=== PATIENT | male | born 1980 | race American Indian/Alaskan Native ===

== ENCOUNTER 2016-10-09 06:50 | Day surgery (SDC) | payer MEDICARE, MEDICAID ==
[~2016-10-09 06:50] MED LIST: Midazolam 1 MG/ML 2 ML SDV ONE; Propofol 200 MG/20 ML SDV ONE; fentaNYL 100 MCG/2 ML SDV ONE
[2016-10-09] MEDS ORDERED: Dextrose 5%-Lactated Ringers 1,000 ML IV SCH (08:00)
[2016-10-09] MEDS ORDERED: Glycopyrrolate 0.2 MG/ML 2 ML SYRINGE IVPUSH ONE (08:15)
[2016-10-09 09:42] VITALS: BP 119/83
--- NOTE | 2016-10-17 12:58 | OR ---
DATE OF PROCEDURE: 10/09/2016 PREOPERATIVE DIAGNOSIS: History of hematemesis. POSTOPERATIVE DIAGNOSES: 1. History of hematemesis associated with a mild hiatal hernia with active gastroesophageal reflux disease with areas of inflammation and possible Russ's esophagus extending into proximal esophagus. 2. Large gastric bezoar consistent with gastroparesis. 3. Diffuse gastritis. PROCEDURE: 1. Esophagogastroduodenoscopy with:. a. Biopsies of antrum for CLOtest. b. Biopsies of esophagogastric junction for histologic evaluation. c. Biopsies of possible areas of Russ's esophagus and proximal esophagus for histologic evaluation. ANESTHESIA: IV sedation. INDICATIONS FOR PROCEDURE: This is a 36-year-old male presenting with a history of hematemesis. In the past, his upper endoscopy was normal. Presently, he is on Protonix 40 mg daily and Zantac 150 mg b.i.d. Plan is to proceed with upper GI endoscopy with biopsies as indicated. Potential risks including bleeding and perforation were discussed, and the patient wishes to proceed. DETAILS OF PROCEDURE: The patient was taken to the operating room and placed in a left lateral decubitus position. IV sedation was administered, after which the upper GI endoscope was passed orally through the esophagus and the stomach with retroflexion view of the fundus, and thereafter through the pyloric channel and into the proximal duodenum. The patient was noted to have a normal hypopharynx, larynx, and upper esophageal sphincter. Within the upper esophagus, there were some patchy areas of what appeared to be more gastric type mucosa and/or possible Russ's esophagus. These areas as well were quite friable. As one approached the EG junction, the patient had a moderate-sized hiatal hernia with quite active gastroesophageal reflux disease with there being marked areas of redness and linear ulcerations present. There is no stricturing or gross evidence of neoplasia. Within the stomach, there was a large gastric bezoar consisting of old retained food associated with some more or less diffuse gastritis. The pyloric channel and proximal duodenum were unremarkable other than for the presence of some retained food likely recently passed from the stomach. The small biopsy obtained from the antrum sent for CLOtest for H pylori. Following this, biopsies were obtained from the esophagogastric junction, sent for histologic evaluation as were the biopsies of the proximal esophagus and the area of possible Russ's esophagus at that location. No bleeding from the biopsy sites was seen and the scope was then removed and the procedure concluded. The patient would appear at this point to have gastroesophageal reflux disease refractory to medical management with probably developing already present Russ's esophagus. He is presently on both Protonix and Zantac, and with the bezoar it is unlikely to get a good result with a Saji fundoplication. Given this, a proximal gastrectomy with John-en-Y gastrojejunostomy would be the best next approach. We will obtain a gastric emptying study and see him back on Saturday, 10/17, for a recheck. Myles Haney MD /[id number]
== END 2016-10-09 10:01 | disposition home or self-care (01) ==
LOC: JP.SDS 06:50
PROVIDERS: ATTEND Surgery
DX: K31.89 Other diseases of stomach and duodenum (principal); K44.9 Diaphragmatic hernia without obstruction or gangrene; Z88.0 Allergy status to penicillin; Z88.8 Allergy status to other drugs, medicaments and biological substances; I10 Essential (primary) hypertension; K21.9 Gastro-esophageal reflux disease without esophagitis; E66.9 Obesity, unspecified; F17.200 Nicotine dependence, unspecified, uncomplicated
CPT/HCPCS: 43239; 87081; 88305; J2250; J2704; J3010; J7042

== ENCOUNTER 2016-10-26 07:13 | Day surgery (SDC) | payer MEDICARE, MEDICAID ==
[2016-10-26] MEDS ORDERED: Dextrose 5%-Lactated Ringers 1,000 ML IV SCH (08:00)
[2016-10-26] MEDS ORDERED: Glycopyrrolate 0.2 MG/ML 2 ML SYRINGE IVPUSH ONE (08:30)
[2016-10-26] MEDS ORDERED: Propofol 200 MG/20 ML SDV ONE (08:34)
[2016-10-26] MEDS ORDERED: Midazolam 1 MG/ML 2 ML SDV ONE (08:34)
[2016-10-26] MEDS ORDERED: fentaNYL 100 MCG/2 ML SDV ONE (08:34)
[2016-10-26 11:11] VITALS: BP 138/85
--- NOTE | 2016-10-31 15:04 | OR ---
DATE OF PROCEDURE: 10/26/2016 PREOPERATIVE DIAGNOSIS: History of severe esophagitis and gastric bezoar. POSTOPERATIVE DIAGNOSES: 1. Healed esophagitis with cleared gastric bezoar. 2. Mild antral gastritis. OPERATIVE PROCEDURE: Esophagogastroduodenoscopy with antral biopsies for CLOtest. ANESTHESIA: IV sedation. INDICATION FOR PROCEDURE: This is a 36-year-old presenting with quite a bit in the way of epigastric pain, heartburn, and hematemesis. On recent endoscopy, he was noted to have quite active distal esophagitis along with a large gastric bezoar. The patient was continued on Protonix 40 mg daily. He also has been started on some Reglan and an anti- bezoar diet. Plan is to proceed with a followup endoscopy to assess the adequacy of the treatment. Potential risks of the procedure including bleeding and perforation were discussed, and the patient wishes to proceed. DETAILS OF PROCEDURE: The patient was taken to the operating room and placed in a left lateral decubitus position. IV sedation was administered, after which the upper GI endoscope was passed orally through the length of the esophagus, into the stomach with retroflexion view of the fundus, thereafter through the pyloric channel, and into the proximal duodenum. The findings included normal hypopharynx, larynx, upper esophageal sphincter, and esophageal body. At the EG junction, the patient was noted to have persistent hiatal hernia, but at this point the esophagitis had healed very nicely with there being no remaining erosions or ulcers and relatively minimal edema of the esophagogastric junction. Again, there was no stricturing or gross evidence of neoplasia. Within the stomach, there was a small amount of retained bile; however, the bezoar that had been present previously now had entirely gone. There was some mild redness in the antrum. Otherwise, the pyloric channel and proximal duodenum were unremarkable. At this point, biopsies were taken from the antrum, once again, to screen for H. pylori status. Minimal bleeding from the biopsy sites was seen. The procedure then concluded. At this point, the medical management is satisfactory, and we will continue that regimen. We will see him back in 2 months for recheck. He is instructed to call should he develop increasing epigastric pain or hematemesis. Myles Haney MD /[id number]
== END 2016-10-26 11:18 | disposition home or self-care (01) ==
LOC: JP.SDS 07:13
PROVIDERS: ATTEND Surgery
DX: T18.2XXA Foreign body in stomach, initial encounter (principal); K44.9 Diaphragmatic hernia without obstruction or gangrene; K21.9 Gastro-esophageal reflux disease without esophagitis; F31.9 Bipolar disorder, unspecified
CPT/HCPCS: 43239; 87081; J2250; J2704; J3010; J7042

== ENCOUNTER 2016-12-11 08:12 | Inpatient (IN) | payer MEDICARE, MEDICAID ==
[~2016-12-11 08:12] MED LIST changes: +Dexamethasone 4 MG/ML SDV ONE; +Glycopyrrolate 0.2 MG/ML 5 ML MDV ONE; -Midazolam 1 MG/ML 2 ML SDV ONE; +Neostigmine Methylsulfate 1 MG/ML 5 ML Syringe ONE; +Ondansetron 4 MG/2 ML SDV ONE; +Rocuronium 50 MG/5 ML Vial ONE; +Scopolamine 1.5 MG Transdermal Patch TRDERM SCH; +Succinylcholine 200 MG/10 ML MDV ONE; -fentaNYL 100 MCG/2 ML SDV ONE
[2016-12-11] MEDS ORDERED: Celecoxib 200 MG Cap PO ONE (08:45)
[2016-12-11] MEDS ORDERED: Gabapentin 300 MG Cap PO ONE (08:45)
[2016-12-11] MEDS ORDERED: Acetaminophen 500 MG Tab PO ONE (08:45)
[2016-12-11] MEDS ORDERED: cefOXitin 2 GM Vial ONE (09:00)
[2016-12-11] MEDS ORDERED: Dextrose 5%-Lactated Ringers 1,000 ML IV SCH (09:30)
[2016-12-11] MEDS ORDERED: Lidocaine 2% 100 MG/5 ML Syringe IVPUSH ONE (09:45)
[2016-12-11] MEDS ORDERED: Ropivacaine 52 ML, Dexamethasone 8 MG, EPINEPHrine 0.4 MG, Sodium Chloride 0.9% 25.6 ML NERVRT SCH ×4 (09:45)
[2016-12-11] MEDS ORDERED: Ketamine 500 MG/5 ML MDV IV SCH (09:45)
[2016-12-11] MEDS ORDERED: Albuterol/Ipratropium 3.0-0.5 MG/3 ML Neb Soln NEB ONE (09:49)
[2016-12-11] MEDS ORDERED: Lactated Ringers 1,000 ML ONE ×2 (09:55→12:44)
[2016-12-11] MEDS: cefOXitin 2 GM in Sodium Chloride 0.9% 50 ML IV ONE ×3 (10:58→15:37)
[2016-12-11] MEDS ORDERED: fentaNYL 250 MCG/5 ML SDV ONE (11:15)
[2016-12-11] MEDS ORDERED: Rocuronium 50 MG/5 ML Vial ONE (11:42)
[2016-12-11] MEDS ORDERED: Labetalol 20 MG/4 ML Syringe ONE (12:21)
[2016-12-11] MEDS ORDERED: Sugammadex Sodium 200 MG/2 ML VIAL ONE (13:49)
[2016-12-11] MEDS ORDERED: Labetalol 20 MG/4 ML Syringe IVPUSH ONE (14:20)
[2016-12-11] MEDS: Lidocaine 0.4%/D5W 2 GM/500 ML BAG IV SCH (15:35)
[2016-12-11] MEDS: SCOPOLAMINE PATCH CHECK TOP SCH (15:37)
[2016-12-11] MEDS ORDERED: Metoclopramide 10 MG/2 ML SDV IVPUSH PRN (16:00)
[2016-12-11] MEDS ORDERED: diphenhydrAMINE 50 MG/ML SDV IVPUSH PRN (16:00)
[2016-12-11] MEDS ORDERED: hydrOXYzine HCl 100 MG/2 ML SDV IM PRN (16:00)
[2016-12-11] MEDS ORDERED: Labetalol 20 MG/4 ML Syringe IVPUSH PRN (16:00)
[2016-12-11] MEDS ORDERED: SCOPOLAMINE PATCH CHECK TOP SCH (16:00)
[2016-12-11] MEDS ORDERED: Ondansetron 4 MG/2 ML SDV IVPUSH PRN (16:00)
[2016-12-11] MEDS ORDERED: HYDROmorphone/Normal Saline 15 MG/30 ML PCA IV PRN (16:21)
[2016-12-11] MEDS ORDERED: Naloxone 0.4 MG/ML SDV IV PRN (16:21)
[2016-12-11] MEDS: MVI, Adult with Vitamin K 10 ML, Thiamine 200 MG, Chromium/Copper/Mang/Selen/Zn 1 ML in... IV SCH ×4 (16:24)
[2016-12-11] MEDS: Pantoprazole 40 MG Vial IVPUSH SCH (16:27)
[2016-12-11] MEDS: cefOXitin 2 GM in Sodium Chloride 0.9% 50 ML IV SCH ×2 (16:38→21:37)
[2016-12-11] MEDS: Acetaminophen Soln 650 MG/20.3 ML UD Cup PO SCH ×2 (16:44→21:35)
[2016-12-11] MEDS: Heparin Sodium 5,000 Units/ML Vial SUBCUT SCH (18:20)
[2016-12-11] MEDS: Gabapentin 250 MG/5 ML Solution ML 470 ML Bottle PO SCH (20:01)
[2016-12-11] MEDS: ClonazePAM 0.5 MG Tab PO SCH (21:37)
[2016-12-11] MEDS: Dextrose 5%-Lactated Ringers 1,000 ML IV SCH (23:16)
[2016-12-12] MEDS: Lidocaine 0.4%/D5W 2 GM/500 ML BAG IV SCH (03:33)
[2016-12-12] MEDS: cefOXitin 2 GM in Sodium Chloride 0.9% 50 ML IV SCH ×4 (03:46→22:42)
[2016-12-12] MEDS: Acetaminophen Soln 650 MG/20.3 ML UD Cup PO SCH ×4 (03:47→22:42)
[2016-12-12] MEDS ORDERED: Iohexol 647 MG/ML 50 ML SDV PO STA (04:01)
[2016-12-12] MEDS: Dextrose 5%-Lactated Ringers 1,000 ML IV SCH (05:35)
[2016-12-12] MEDS: Heparin Sodium 5,000 Units/ML Vial SUBCUT SCH ×2 (05:35→17:29)
[2016-12-12] MEDS: Celecoxib 200 MG Cap PO SCH (07:17)
[2016-12-12] MEDS ORDERED: Loratadine 10 MG Tab PO PRN (07:25)
[2016-12-12] MEDS ORDERED: Dextrose 5%-Lactated Ringers 1,000 ML IV SCH (07:30)
[2016-12-12] MEDS: Gabapentin 250 MG/5 ML Solution ML 470 ML Bottle PO SCH ×3 (08:33→20:08)
[2016-12-12] MEDS: ClonazePAM 0.5 MG Tab PO SCH ×2 (08:33→20:08)
[2016-12-12] MEDS: SCOPOLAMINE PATCH CHECK TOP SCH (08:56)
[2016-12-12] MEDS ORDERED: ClonazePAM 0.5 MG Tab PO SCH (09:00)
--- NOTE | 2016-12-12 09:02 | PN ---
DATE OF SERVICE: 12/12/2016 SUBJECTIVE: Hector is postop day #1, and his pain is controlled. He has had no nausea or vomiting. Upper GI was negative. REVIEW OF SYSTEMS: Remainder of review of systems is negative for any pertinent positives and negatives. OBJECTIVE: GENERAL: Hector is a 36-year-old male. He is alert and oriented. VITAL SIGNS: TPR 99.1, 87, 16 and blood pressure is 106/63. HEENT: Negative. NECK: Supple. HEART: Regular rate and rhythm. LUNGS: Clear. ABDOMEN: Dressings dry and intact. Abdominal binder is on. MELODY drains have put out a 100 and 100 respectively of a pink serous drainage. EXTREMITIES: SCDs are on. There is no peripheral edema. ASSESSMENT: Diagnostic laparoscopy with lysis of adhesions, esophagogastroduodenoscopy with John-en-Y esophagojejunostomy and repair of recurrent paraesophageal diaphragmatic hernia for gastroparesis refractory to medical management, severe scarring of the esophagojejunostomy secondary to previous Saji fundoplication and recurrent paraesophageal diaphragmatic hernia. Date of surgery 12/11/2016. PLAN: Decrease IV to 100 mL per hour on step 2 with no serial gastric bypass diet. Dressing off. May shower. Discontinue telemetry and continuous pulse ox on lidocaine is in. Vital signs and O2 saturation checks every 4 hours. Resume home medications of Abilify 400 mg IM, Abilify Maintena 400 mg IM every 30 days, Claritin 10 mg daily p.r.n., and clonazepam 0.5 mg p.o. b.i.d. Acapella 10 times every hour while awake. Ambulate at least six times daily. We will evaluate p.r.n. or in a.m. Ivette Tripp PA-C /[id number]
--- NOTE | 2016-12-12 09:38 | CR ---
Limited upper GI The patient is status post John-en-Y gastric bypass. There are left upper quadrant drains in place. There is no extravasation of contrast. The gastric pouch empties readily into a nondilated John limb . No complications are evident. Impression: 1. Status post John-en-Y gastric bypass without evidence for complication.
[2016-12-12] MEDS: MVI, Adult with Vitamin K 10 ML, Thiamine 200 MG, Chromium/Copper/Mang/Selen/Zn 1 ML in... IV SCH ×4 (17:28)
[2016-12-12] MEDS: Pantoprazole 40 MG Vial IVPUSH SCH (17:28)
[2016-12-13] MEDS: Acetaminophen Soln 650 MG/20.3 ML UD Cup PO SCH ×4 (04:33→22:20)
[2016-12-13] MEDS: Heparin Sodium 5,000 Units/ML Vial SUBCUT SCH ×2 (05:53→17:00)
[2016-12-13] MEDS ORDERED: Cyanocobalamin (Vitamin B12) 1,000 MCG/ML SDV IM ONE (09:00)
--- NOTE | 2016-12-13 09:01 | PN ---
DATE OF SERVICE: 12/13/2016 SUBJECTIVE: Hector is postop day #2. His temp max was 100.2. Pain has been controlled. Oral intake was 1110 and urinary output was 2175. His MELODY drains 1 and 2 have put out 75 mL and 65 mL respectively. He has been active, walking in the halls. I am not sure if he has seen Dietary yet. There have been no notes in chart at the time of this discharge. REVIEW OF SYSTEMS: Completely negative for any other pertinent positives and negatives. OBJECTIVE: GENERAL: Hector Go is a 36-year-old male. He is alert and orientated, sitting on the edge of the bed. VITAL SIGNS: TPR 99.1, 84, 14, and blood pressure 102/55. HEENT: Negative. NECK: Supple. HEART: Regular rate and rhythm. LUNGS: Clear. ABDOMEN: Incisions look good. MELODY drains x2 intact. Abdominal binder was on and replaced. EXTREMITIES: Without peripheral edema. ASSESSMENT: Diagnostic laparoscopy with lysis of adhesion, esophagogastrojejunostomy with John-en-Y esophagojejunostomy and repair of recurrent paraesophageal diaphragmatic hernia for gastroparesis refractory to medical management, severe scarring of the esophagojejunostomy secondary to previous nevus, Saji fundoplication, and recurrent paraesophageal diaphragmatic hernia. Date of surgery 12/11/2016. PLAN: 1. Saline lock IV. 2. Dietary consult. 3. Good pulmonary toilet. 4. Reinforce dietary education. The patient will be going home on a step-2 gastric bypass diet with no cereal for 2 weeks. 5. We will evaluate p.r.n. or in a.m. 6. Plan discharge in a.m. Ivette Tripp PA-C /[id number]
[2016-12-13] MEDS: Celecoxib 200 MG Cap PO SCH (09:12)
[2016-12-13] MEDS: ClonazePAM 0.5 MG Tab PO SCH ×2 (09:22→20:14)
[2016-12-13] MEDS: Gabapentin 250 MG/5 ML Solution ML 470 ML Bottle PO SCH ×3 (09:22→20:14)
[2016-12-13] MEDS: SCOPOLAMINE PATCH CHECK TOP SCH (09:22)
--- NOTE | 2016-12-13 14:46 | OR ---
DATE OF PROCEDURE: 12/11/2016 PREOPERATIVE DIAGNOSES: 1. Gastroparesis, refractory to medical management. 2. Severe scarring of the esophagogastric junction secondary to previous Saji fundoplication. 3. Recurrent paraesophageal diaphragmatic hernia. OPERATIVE PROCEDURE: 1. Diagnostic laparoscopy with lysis of adhesions. a. Esophagogastrectomy with John-en-Y esophagojejunostomy (41754). b. Repair of recurrent paraesophageal diaphragmatic hernia (34986). ANESTHESIA: General. INDICATIONS FOR PROCEDURE: This is a 36-year-old male presenting with ongoing severe symptoms from gastroparesis associated with retained food within the stomach. A variety of nonsurgical approaches including erythromycin, Reglan, and anti-bezoar diet have all been tried and the patient remains at this point fairly miserable with regard to the gastroparesis and retained gastric contents, oral gastric tube, and the abdomen prepped and draped. DESCRIPTION OF PROCEDURE: Using continuous ultrasound guidance, bilateral subcostal transverse abdominis plane blocks were placed by using the standard formula. At this point a 15 cm inferior, 5 cm left of xiphoid process, transverse incision was made and the peritoneal cavity entered under direct vision with Optiview trocar, was inflated to 15 mmHg pressure of CO2. Laparoscope reinserted. No underlying trocar insertion site injuries were seen. Following this, 5 additional trocars were placed across the upper mid abdomen and general exploration was undertaken. The patient was noted to have a fair bit of adhesions underneath the liver to the fundoplication, but otherwise no major problems were noted. At this point, the omentum was divided in midline and the small bowel was identified at the ligament of Treitz. Small bowel was then traced out 30 cm distal to that point, where it was divided transversely with a CLAY stapler. Small bowel was then traced out an additional 100 cm where the [id number] enteroenterostomy was accomplished with internal firing of the Endo-CLAY 60 mm stapler. Common opening was then closed transversely with the same stapler and angles anastomosed, and mesenteric defect approximated with some 0 Ethibond stitch along with fibrin sealant. The John limb was then mobilized in an antecolic manner up to the area of the esophagogastric junction without tension. The liver was then retracted and dissection of the liver off the area of fundoplication was accomplished. As one dissected further, the patient was noted to have a dense inflammatory response in that general area. This made dissection at the plane of the gastric cardia unacceptably risky. Given this, the stomach was then divided a few centimeters below that. After obtaining a plain edge of the lesser sac by division of the lesser omentum at that level with Harmonic scalpel, the stomach was then gradually divided initially transversely in the upper and obliquely up to the area of the angle of His, which included the portion of the stomach used for fundoplication. The dissection was gradually extended backward toward the esophagogastric junction, the inflammation remained intensive at that level due to the pledgets used for the fundoplication and dissection within the distal esophagus above the fundoplication was then established in the esophagus. This level was soft and appropriate for GI tract anastomosis. An anvil of a 25 mm EEA stapler was attached to Wayne sump type tube and was brought down through the mouth and then out through a small opening in the divided esophagus. The main body of the EEA stapler was passed into the lumen of the John limb, brought up to the anvil and united with it, thus creating the esophagojejunostomy. Upon removal of stapler, donuts of mucosa were noted within it. The esophagojejunostomy was reinforced with some 3-0 Vicryl seromuscular stitch along with fibrin sealant. Leak test was accomplished with injection of 120 mL of air in the distal esophagus while the area was submerged with antibiotic- containing saline solution. No leaks were identified. During the course of the dissection, the patient was noted to have a recurrence of the diaphragmatic hernia. This was closed anteriorly with some 0 Ethibond stitch. Pledgets were used in this case that appeared to have an exaggerated inflammatory response to the pledgets used at the time of the fundoplication. At this point, 2 Karel-Santana drains were placed through the left subcostal trocar sites and positioned adjacent to the esophagojejunostomy. The trocars were then sequentially removed. The fascia at the left lateral segments were then brought in and closed with some 0 Vicryl stitch and the skin at each incision with 4-0 Vicryl skin stitch. Dressing was applied. The patient was taken to the recovery room in satisfactory condition with no other complications. Myles Haney MD /[id number]
[2016-12-13] MEDS ORDERED: Pantoprazole 40 MG Tab.CR PO SCH (16:30)
[2016-12-14] MEDS: Acetaminophen Soln 650 MG/20.3 ML UD Cup PO SCH ×2 (03:01→09:23)
[2016-12-14] MEDS: Heparin Sodium 5,000 Units/ML Vial SUBCUT SCH (05:22)
[2016-12-14] MEDS: Celecoxib 200 MG Cap PO SCH (07:28)
[2016-12-14 07:42] VITALS: BP 124/69
--- NOTE | 2016-12-14 08:35 | DISCH ---
ADMISSION DIAGNOSES: Gastroesophageal reflux disease refractory to medical management, bipolar disorder, schizophrenia, and psychotic disorder. DISCHARGE DIAGNOSES: Diagnostic laparoscopy with lysis of adhesions, esophagogastrectomy with John-en-Y esophagojejunostomy, and repair of recurrent paraesophageal diaphragmatic hernia for gastroparesis refractory to medical management, severe scarring of the esophagogastric junction secondary to previous Saji fundoplication, and recurrent paraesophageal diaphragmatic hernia. Date of surgery, 12/11/2016. HISTORY: Hector is a 36-year-old male presenting with ongoing severe symptoms of gastroparesis associated with retained food within the stomach. This condition was refractory to medical management. After preoperative evaluation and discussion of possible risks and possible complications, he wished to proceed with surgical procedure. HOSPITAL COURSE: Hector had his surgery on 12/11/2016. He had no operative complications. On postop day #1, he was started on step-2 gastric bypass diet with no cereal. His pain was well managed. His activity was good. He received adequate dietary instruction. On postop day #3, he was able to be discharged to home. PHYSICAL EXAMINATION: GENERAL: Dar Young is a 36-year-old male, alert and orientated. VITAL SIGNS: Height 5 feet 11 inches. Weight is 229 pounds. BMI 31. TPR 98.3, 75, 14, and blood pressure 109/63. HEENT: Negative. NECK: Supple. HEART: Regular rate and rhythm. LUNGS: Clear. ABDOMEN: Incisions look good. He has 2 MELODY drains that are intact, but these will be removed prior to discharge. The MELODY drains have put out a light pink serous drainage. Abdominal binder has been on. EXTREMITIES: Without peripheral edema. DISPOSITION: Discharged to home. CONDITION: Stable and improving. FOLLOWUP APPOINTMENT: On 12/21/2016 at 10 a.m. with Ivette Tripp PA-C, at [facility]. DISCHARGE MEDICATIONS: New prescriptions; Tylenol 650 mg/20.3 mL oral q.6 hours and 1200 mL were given with 1 refill; Celebrex 200 mg p.o. daily, #14; Abilify 400 mg IM every 30 days; loratadine 10 mg oral daily p.r.n. allergies; Reglan 10 mg oral 4 times daily p.r.n. nausea; Zantac 100 mg oral twice daily; and clonazepam 0.5 mg twice daily. DISCHARGE DIET: Drink 8 to 10 glasses of water a day. Step-2 gastric bypass diet with no cereal. A picture of dietary patient education sheet will be given due to low reading level and for added comprehension. Hector was given a food journal to keep track of his oral intake. ACTIVITY: After discharge, no lifting greater than 10 pounds for 2 weeks. Walk 6 times daily inside your home. Shower/bathing, may shower. DISCHARGE INSTRUCTIONS: Notify provider if any fever, increased pain, nausea, or vomiting. Keep site clean and dry. Wear abdominal binder for 2 weeks and then as tolerated. Special instructions: Use Acapella 10 times every hour while awake for 2 weeks.
[2016-12-14] MEDS: SCOPOLAMINE PATCH CHECK TOP SCH (09:23)
[2016-12-14] MEDS: ClonazePAM 0.5 MG Tab PO SCH (09:28)
[2016-12-14] MEDS: Gabapentin 250 MG/5 ML Solution ML 470 ML Bottle PO SCH (09:32)
[2017-01-06] MEDS ORDERED: ARIPIPRAZOLE 400 MG IM SCH (09:00)
== END 2016-12-14 10:20 | disposition home or self-care (01) | DRG 328 ==
LOC: JP.MS 08:12 → JP.SDS 08:12 → EDSTATUS 12:00 → JP.2SS 14:05
PROVIDERS: ADMIT Surgery; ATTEND Surgery
DX: K31.84 Gastroparesis (principal); K44.9 Diaphragmatic hernia without obstruction or gangrene; F20.9 Schizophrenia, unspecified; F29 Unspecified psychosis not due to a substance or known physiological condition; K22.8 Other specified diseases of esophagus
CPT/HCPCS: 36415; 74240; 74240-26; 80053; 83036; 83735; 84100; 85027; 86850; 86900; 86901; 88307; A9270-GY; C9113; J0171; J0330; J0694; J1100; J1644; J2001; J2405; J2704; J2795; J3010; J3411; J3420; J7030; J7042; J7050; J7120; J7620; Q9967

== ENCOUNTER 2017-01-03 08:49 | Day surgery (SDC) | payer MEDICARE, MEDICAID ==
[~2017-01-03 08:49] MED LIST changes: -Dexamethasone 4 MG/ML SDV ONE; -Glycopyrrolate 0.2 MG/ML 5 ML MDV ONE; +Midazolam 1 MG/ML 2 ML SDV ONE; -Neostigmine Methylsulfate 1 MG/ML 5 ML Syringe ONE; -Ondansetron 4 MG/2 ML SDV ONE; -Rocuronium 50 MG/5 ML Vial ONE; -Scopolamine 1.5 MG Transdermal Patch TRDERM SCH; -Succinylcholine 200 MG/10 ML MDV ONE; +fentaNYL 100 MCG/2 ML SDV ONE
[2017-01-03] MEDS ORDERED: Lactated Ringers 1,000 ML IV SCH (09:00)
[2017-01-03] MEDS ORDERED: Glycopyrrolate 0.2 MG/ML 2 ML SDV IVPUSH ONE (09:00)
[2017-01-03] MEDS ORDERED: MVI, Adult with Vitamin K 10 ML, Thiamine 200 MG, Chromium/Copper/Mang/Selen/Zn 1 ML in... IV ONE ×4 (09:00)
[2017-01-03] MEDS ORDERED: Cyanocobalamin (Vitamin B12) 1,000 MCG/ML SDV IM ONE (09:00)
[2017-01-03 13:22] VITALS: BP 119/81
--- NOTE | 2017-01-07 13:30 | OR ---
DATE OF PROCEDURE: 01/03/2017 PREOPERATIVE DIAGNOSIS: Probable strictured esophagojejunostomy. POSTOPERATIVE DIAGNOSES: 1. Strictured esophagojejunostomy. 2. Foreign body in esophagus. OPERATIVE PROCEDURES: Upper GI endoscopy with: 1. Dilation of esophagojejunostomy (42468). 2. Removal of foreign body within esophagus ([id number]). ANESTHESIA: IV sedation. INDICATION FOR PROCEDURE: The patient is status post esophagogastrectomy for severe gastroparesis on 12/11/2016. He presents now with symptoms suggestive of stricturing at his esophagojejunostomy. Plan is to proceed with upper GI endoscopy with dilation as indicated. The potential risks of bleeding and perforation were discussed, and the patient wishes to proceed. DETAILS OF PROCEDURE: The patient was taken to the operating room and placed in a left lateral decubitus position. IV sedation was administered after which the upper GI endoscope was passed orally through the length of the esophagus. At the distal esophagus, a piece of undigested food was present. This was quite a bit larger than the diameter of the esophagus. The patient also had some degree of stricturing at esophagojejunostomy. A Bard gastrointestinal balloon catheter was centered across the anastomosis and inflated to 45- Bulgarian size. This was held in position for 1 minute after which the balloon catheter was deflated and withdrawn. The foreign body pushed through the anastomosis and it was then retrieved with an endoscopic basket with removal of the scope. The scope was then replaced and the anastomosis examined. No complications were noted. Adequate dilation was evident. The scope was then once again withdrawn. The procedure then concluded. The patient was taken to the recovery room in satisfactory condition. Myles Haney MD /[id number]
== END 2017-01-03 13:20 | disposition home or self-care (01) ==
LOC: JP.SDS 08:49
PROVIDERS: ATTEND Surgery
DX: T18.198A Other foreign object in esophagus causing other injury, initial encounter (principal); K94.33 Esophagostomy malfunction; I10 Essential (primary) hypertension
CPT/HCPCS: 43247; 43249; J2250; J2704; J3010; J3411; J3420; J7120; J3490

== ENCOUNTER 2017-01-24 06:03 | Day surgery (SDC) | payer MEDICARE, MEDICAID ==
[2017-01-24] MEDS ORDERED: Lactated Ringers 1,000 ML IV SCH (06:30)
[2017-01-24] MEDS ORDERED: Cyanocobalamin (Vitamin B12) 1,000 MCG/ML SDV IM ONE (06:30)
[2017-01-24] MEDS ORDERED: Glycopyrrolate 0.2 MG/ML 2 ML SDV IVPUSH ONE (07:00)
[2017-01-24] MEDS ORDERED: Propofol 200 MG/20 ML SDV ONE (07:15)
[2017-01-24] MEDS ORDERED: fentaNYL 100 MCG/2 ML SDV ONE (07:15)
[2017-01-24] MEDS ORDERED: Midazolam 1 MG/ML 2 ML SDV ONE (07:15)
[2017-01-24] MEDS ORDERED: MVI, Adult with Vitamin K 10 ML, Thiamine 200 MG, Chromium/Copper/Mang/Selen/Zn 1 ML in... IV ONE ×4 (08:00)
[2017-01-24 10:20] VITALS: BP 111/77
--- NOTE | 2017-01-28 10:58 | OR ---
DATE OF PROCEDURE: 01/24/2017 PREOPERATIVE DIAGNOSIS: Probable stricture of esophagojejunostomy. POSTOPERATIVE DIAGNOSIS: Moderately tight stricture of esophagojejunostomy. OPERATIVE PROCEDURE: Upper gastrointestinal endoscopy with dilation of esophagojejunostomy, (28247). ANESTHESIA: IV sedation. INDICATION FOR PROCEDURE: The patient is status post an esophagogastrectomy for recurrent gastroesophageal reflux disease done on December 11 of this year. He presents now with some symptoms of stricturing at his esophagojejunostomy. Plan is to proceed with upper GI endoscopy with dilation as indicated. Potential risks of the procedure including bleeding and perforation were discussed, and the patient wishes to proceed. DETAILS OF PROCEDURE: The patient was taken to the operating room and placed in a left lateral decubitus position. IV sedation was administered, after which the upper GI endoscope was passed orally through the length of the esophagus and into the area of the esophagojejunostomy. The patient was noted to have a moderate stricture with the 1 cm scope not quite being able to be passed through the anastomosis. No retained food or fluid was noted. A gastrointestinal balloon catheter using fluoroscopic guidance was then centered across the anastomosis, inflated to 45-Eritrean size, using the lower pressured level, i.e. 30 Psi pressure, at the point of dilation. This was held in position for 1 minute, after which the balloon catheter was deflated and withdrawn. The scope was easily then passed through the anastomosis. No complications were noted and the procedure then concluded. The patient was taken to the recovery room in satisfactory condition. The patient will be following up with Dietary and Ivette Tripp PA-C next Saturday to update the patient in terms of dietary management. Myles Haney MD /[id number]
== END 2017-01-24 10:35 | disposition home or self-care (01) ==
LOC: JP.SDS 06:03
PROVIDERS: ATTEND Surgery
DX: K94.39 Other complications of esophagostomy (principal); Z90.49 Acquired absence of other specified parts of digestive tract
CPT/HCPCS: 43249; J2250; J2704; J3010; J3411; J3420; J7120; J3490

== ENCOUNTER 2017-06-05 11:57 | Observation (INO) | payer MEDICARE, MEDICAID ==
[2017-06-05] MEDS ORDERED: Acetaminophen 650 MG Supp RECTAL PRN (12:47)
[2017-06-05] MEDS ORDERED: Acetaminophen 325 MG Tab PO PRN (12:47)
[2017-06-05] MEDS ORDERED: Ondansetron 4 MG/2 ML SDV IV PRN (12:47)
[2017-06-05] MEDS: Metoclopramide 10 MG/2 ML SDV IV SCH ×2 (14:13→19:17)
[2017-06-05] MEDS: Pantoprazole 40 MG Vial IV SCH (14:13)
[2017-06-05] MEDS ORDERED: MVI IV ONE ×4 (16:00)
[2017-06-05] MEDS ORDERED: VITAMIN K IV ONE ×4 (16:00)
[2017-06-05] MEDS ORDERED: [UNRECOGNIZED DRUG - OTHER] IV ONE ×4 (16:00)
[2017-06-05] MEDS ORDERED: FOLIC ACID IV ONE ×4 (16:00)
[2017-06-05] MEDS ORDERED: MAGNESIUM SULFATE IV ONE ×4 (16:00)
[2017-06-05] MEDS: Dextrose 5%-Lactated Ringers 1,000 ML IV SCH (17:48)
[2017-06-05] MEDS ORDERED: Gabapentin 300 MG Cap PO SCH (21:00)
[2017-06-05] MEDS: ClonazePAM 0.5 MG Tab PO SCH (21:59)
[2017-06-06] MEDS: Dextrose 5%-Lactated Ringers 1,000 ML IV SCH ×2 (00:34→07:17)
[2017-06-06] MEDS: Pantoprazole 40 MG Vial IV SCH (02:43)
[2017-06-06] MEDS: Metoclopramide 10 MG/2 ML SDV IV SCH ×2 (02:43→07:19)
--- NOTE | 2017-06-06 06:39 | PCM.HP ---
H&P History of Present Illness - General Date of Service: 06/06/17 Admit Problem/Dx: Admission Diagnosis/Problem Admission Diagnosis/Problem Dehydration Source of Information: Patient History Limitations: Reports: No Limitations - History of Present Illness Initial Comments - Free Text/Narative: 06/05/17 Hector states he had the flu about 10 days ago. He called the clinic yesterday stating he was unable to keep water down. He was given fluids in the Infusion [facility] but continued to vomit. He was admitted to [facility] for Observation and an EGD with possible Dilation in AM Worsens with: Reports: Eating Context: Reports: Sick Contact Associated Symptoms: Reports: Nausea/Vomiting, Weakness - Related Data Allergies/Adverse Reactions: Allergies Allergy/AdvReac Type Severity Reaction Status Date / Time lithium [[place]] Allergy Liver Verified 01/24/17 06:28 Problems Penicillins Allergy Cannot Verified 01/24/17 06:28 Remember aspirin AdvReac Bleeding Verified 01/24/17 06:28 divalproex sodium AdvReac Liver Verified 01/24/17 06:28 [From Depakote] Problems quetiapine fumarate AdvReac Liver Verified 01/24/17 06:28 [From Seroquel] Problems Home Medications: Home Meds ARIPiprazole [Abilify Maintena] 400 mg IM .EVERY 30 DAY 09/28/15 [History] clonazePAM [Clonazepam] 0.5 mg PO BID 11/02/15 [History] Ranitidine [Zantac] 150 mg PO BID 07/12/16 [History] Loratadine [Claritin] 10 mg PO DAILY PRN 10/24/16 [History] Past Medical History HEENT History: Reports: None Gastrointestinal History: Reports: None, GERD Musculoskeletal History: Reports: Back Pain, Chronic, Osteoarthritis, Other ( See Below) Other Musculoskeletal History: Recent back/neck sork comp claim from 01/02/16 Neurological History: Reports: Concussion, Head Trauma Other Neuro History: 2009 head injury Psychiatric History: Reports: Bipolar, Mood Swings, Psych Hospitalization(s), PTSD, Suicide Attempt, Suicidal Ideation Other Psychiatric History: Yeny Munguia in 2012 Endocrine/Metabolic History: Reports: Vitamin D Deficiency Hematologic History: Reports: B12 Deficiency - Infectious Disease History Infectious Disease History: Reports: Other (See Below) Other Infectious Disease History: unknown - Past Surgical History Head Surgeries/Procedures: Reports: None HEENT Surgical History: Reports: Eye Surgery GI Surgical History: Reports: Cholecystectomy, EGD, Esophageal Dilatation, Saji Fundoplication, Other (See Below) Other GI Surgeries/Procedures: gastrectomy 12/11/16 Musculoskeletal Surgical History: Reports: Arthroscopic Knee Dermatological Surgical History: Reports: None Social & Family History - Family History Family Medical History: Noncontributory Psychiatric: Reports: Other (See Below) Other Psychiatric Family History: sisters have mental illness Endocrine/Metabolic: Reports: Diabetes, type II Other Endocrine/Metabolic Family History: mother had diabetes - Tobacco Use Smoking Status *Q: Current Every Day Smoker Years of Tobacco use: 12 Packs/Tins Daily: 0.5 Used Tobacco, but Quit: No Second Hand Smoke Exposure: No - Caffeine Use Caffeine Use: Reports: Coffee - Alcohol Use Days Per Week of Alcohol Use: 0 - Recreational Drug Use Recreational Drug Use: No Drug Use in Last 12 Months: No Recreational Drug Type: Reports: Marijuana/Hashish Recreational Drug Use Frequency: Not Used In Over 6 Months H&P Review of Systems - Review of Systems: Review Of Systems: See Below General: Reports: Malaise, Weakness, Fatigue HEENT: Reports: No Symptoms Pulmonary: Reports: No Symptoms Cardiovascular: Reports: No Symptoms Gastrointestinal: Reports: No Symptoms Genitourinary: Reports: No Symptoms Musculoskeletal: Reports: No Symptoms Skin: Reports: No Symptoms Psychiatric: Reports: No Symptoms Neurological: Reports: No Symptoms Hematologic/Lymphatic: Reports: No Symptoms Immunologic: Reports: No Symptoms Exam - Exam Exam: See Below - Vital Signs Vital Signs: Last Vital Signs Temp 96.9 F 06/06/17 02:47 Pulse 55 L 06/06/17 02:47 Resp 16 06/06/17 02:47 BP 101/62 06/06/17 02:47 Pulse Ox 97 06/06/17 02:47 Weight: 167 lb 6.4 oz - Exam Quality Assessment: DVT Prophylaxis General: Alert, Oriented, Cooperative, Mild Distress HEENT: PERRLA Neck: Supple, Trachea Midline Lungs: Clear to Auscultation, Normal Respiratory Effort Cardiovascular: Regular Rate, Regular Rhythm GI/Abdominal Exam: Soft, Non-Tender (Male) Exam: Deferred Rectal (Males) Exam: Deferred Back Exam: Normal Inspection, Full Range of Motion Skin: Warm, Dry, Intact Neurological: Cranial Nerves Intact, Reflexes Equal Bilateral Neuro Extensive - Mental Status: Alert, Oriented x3, Normal Mood/Affect Neuro Extensive - Motor, Sensory, Reflexes: CN II-XII Intact, Normal Reflexes Psychiatric: Alert, Labile Mood - Patient Data Lab Results Last 24 hrs: Laboratory Results - last 24 hr 06/05/17 06/05/17 06/05/17 Range/Units 12:16 12:17 12:30 WBC 7.6 (4.5-11.0) K/uL RBC 5.76 (4.30-5.90) M/uL Hgb 15.8 H (12.0-15.0) g/dL Hct 46.0 (40.0-54.0) % MCV 80 (80-98) fL MCH 27 (27-31) pg MCHC 34 (32-36) % Plt Count 266 (150-400) K/uL Sodium 145 (140-148) mmol/L Potassium 4.2 (3.6-5.2) mmol/L Chloride 107 (100-108) mmol/L Carbon Dioxide 28 (21-32) mmol/L Anion Gap 9.6 (5.0-14.0) mmol/L BUN 13 (7-18) mg/dL Creatinine 0.8 (0.8-1.3) mg/dL Est Cr Clr Drug Dosing 137.27 mL/min Estimated GFR (MDRD) > 60 (>60) Glucose 94 (74-106) mg/dL Calcium 9.0 (8.5-10.1) mg/dL Phosphorus 3.6 (2.5-4.9) mg/dL Magnesium 2.3 (1.8-2.4) mg/dL Ferritin 130 (8-388) ng/ml Total Bilirubin 0.6 (0.2-1.0) mg/dL AST 22 (15-37) U/L ALT 29 (12-78) U/L Alkaline Phosphatase 58 (46-116) U/L Total Protein 7.3 (6.4-8.2) g/dL Albumin 4.0 (3.4-5.0) g/dL Globulin 3.3 (2.3-3.5) g/dL Albumin/Globulin Ratio 1.2 (1.2-2.2) Vitamin B12 309 (193-986) pg/ml Vitamin D 25-Hydroxy (30-100) ng/mL Folate > 20.0 (8.6-58.9) ng/ml 06/05/17 Range/Units 12:32 WBC (4.5-11.0) K/uL RBC (4.30-5.90) M/uL Hgb (12.0-15.0) g/dL Hct (40.0-54.0) % MCV (80-98) fL MCH (27-31) pg MCHC (32-36) % Plt Count (150-400) K/uL Sodium (140-148) mmol/L Potassium (3.6-5.2) mmol/L Chloride (100-108) mmol/L Carbon Dioxide (21-32) mmol/L Anion Gap (5.0-14.0) mmol/L BUN (7-18) mg/dL Creatinine (0.8-1.3) mg/dL Est Cr Clr Drug Dosing mL/min Estimated GFR (MDRD) (>60) Glucose (74-106) mg/dL Calcium (8.5-10.1) mg/dL Phosphorus (2.5-4.9) mg/dL Magnesium (1.8-2.4) mg/dL Ferritin (8-388) ng/ml Total Bilirubin (0.2-1.0) mg/dL AST (15-37) U/L ALT (12-78) U/L Alkaline Phosphatase (46-116) U/L Total Protein (6.4-8.2) g/dL Albumin (3.4-5.0) g/dL Globulin (2.3-3.5) g/dL Albumin/Globulin Ratio (1.2-2.2) Vitamin B12 (193-986) pg/ml Vitamin D 25-Hydroxy 21.8 L (30-100) ng/mL Folate (8.6-58.9) ng/ml Result Diagrams: 06/05/17 12:30 06/05/17 12:16 *Q Meaningful Use (ADM) - VTE *Q VTE Criteria *Q: - Stroke *Q Stroke Criteria *Q: - AMI *Q AMI Criteria *Q: Problem List Initiated/Reviewed/Updated: Yes Orders Last 24hrs: Active Orders 24 hr Category Date Time Status Admission Status [Patient Status] [ADT] Routine ADT 06/05/17 11:56 Active Intake and Output [RC] QSHIFT Care 06/05/17 12:18 Active Up ad Ama [RC] ASDIRECTED Care 06/05/17 12:10 Active Verify Patient Consent Obtain [RC] ASDIRECTED Care 06/05/17 12:18 Active Vital Signs [RC] Q4H Care 06/05/17 12:12 Active Nothing Per Oral Diet [DIET] Diet 06/05/17 Dinner Active Acetaminophen [Tylenol] Med 06/05/17 12:47 Active 650 mg PO Q4H PRN Acetaminophen [Tylenol] Med 06/05/17 12:47 Active 650 mg RECTAL Q4H PRN ClonazePAM [KlonoPIN] Med 06/05/17 21:00 Active 0.5 mg PO BID Dextrose 5%-Lactated Ringers 1,000 ml Med 06/05/17 13:00 Active IV ASDIRECTED Gabapentin [Neurontin] Med 06/05/17 21:00 Active 300 mg PO BEDTIME Glycopyrrolate Med 06/06/17 09:00 Once 0.4 mg IV ONCALL ONE Metoclopramide [Reglan] Med 06/05/17 14:00 Active 10 mg IV Q6H Ondansetron [Zofran] Med 06/05/17 12:47 Active 4 mg IV Q4H PRN Pantoprazole [ProTONIX IV] Med 06/05/17 14:00 Active 40 mg IV Q12H SCD [Sequential Compression Device] [OM.PC] Routine Oth 06/05/17 12:18 Ordered Code Status [Resuscitation Status] Routine Resus Stat 06/05/17 12:09 Ordered Medication Orders Acetaminophen (Tylenol) 650 mg PO Q4H PRN PRN Reason: FEVER/PAIN Acetaminophen (Tylenol) 650 mg RECTAL Q4H PRN PRN Reason: FEVER/PAIN Clonazepam (Klonopin) 0.5 mg PO BID [facility] Last Admin: 06/05/17 21:59 Dose: 0.5 mg Gabapentin (Neurontin) 300 mg PO BEDTIME LDUA Last Admin: 06/05/17 21:59 Dose: 300 mg Glycopyrrolate (Glycopyrrolate) 0.4 mg IV ONCALL ONE Stop: 06/06/17 09:01 Dextrose/Lactated Ringer's (Dextrose 5%-Lactated Ringers) 1,000 mls @ 150 mls/ hr IV ASDIRECTED [facility] Last Admin: 06/06/17 00:34 Dose: 150 mls/hr Infusion: 06/06/17 00:29 Dose: 150 mls/hr Admin: 06/05/17 17:48 Dose: 150 mls/hr Metoclopramide HCl (Reglan) 10 mg IV Q6H [facility] Last Admin: 06/06/17 02:43 Dose: 10 mg Admin: 06/05/17 19:17 Dose: 10 mg Admin: 06/05/17 14:13 Dose: 10 mg Ondansetron HCl (Zofran) 4 mg IV Q4H PRN PRN Reason: N/V Pantoprazole Sodium (Protonix Iv) 40 mg IV Q12H [facility] Last Admin: 06/06/17 02:43 Dose: 40 mg Admin: 06/05/17 14:13 Dose: 40 mg Assessment/Plan Comment:: Dehydration Nausea and Vomiting SP Partial Gastrectomy Plan: Admit to [facility] for Observation EGD with Dilation Scheduled for 06/06/17 - IV Sedation See Copy of Admission Orders in EMR Ivette Sandra
--- NOTE | 2017-06-06 06:50 | PCM.PN ---
- General Info Date of Service: 06/06/17 Admission Dx/Problem (Free Text): Hector has had no nausea or vomiting since admission but he also has been on only ice chips. - Review of Systems General: Reports: No Symptoms HEENT: Reports: No Symptoms Pulmonary: Reports: No Symptoms Cardiovascular: Reports: No Symptoms Gastrointestinal: Reports: No Symptoms Genitourinary: Reports: No Symptoms Musculoskeletal: Reports: No Symptoms Skin: Reports: No Symptoms Neurological: Reports: No Symptoms Psychiatric: Reports: No Symptoms - Patient Data Vitals - Most Recent: Last Vital Signs Temp 96.9 F 06/06/17 02:47 Pulse 55 L 06/06/17 02:47 Resp 16 06/06/17 02:47 BP 101/62 06/06/17 02:47 Pulse Ox 97 06/06/17 02:47 Weight - Most Recent: 167 lb 6.4 oz I&O - Last 24 Hours: Intake & Output 06/05/17 06/05/17 06/06/17 14:59 22:59 06:59 Intake Total 240 1120 1723 Output Total 350 Balance 560 764 3422 Lab Results Last 24 Hours: Laboratory Results - last 24 hr 06/05/17 06/05/17 06/05/17 Range/Units 12:16 12:17 12:30 WBC 7.6 (4.5-11.0) K/uL RBC 5.76 (4.30-5.90) M/uL Hgb 15.8 H (12.0-15.0) g/dL Hct 46.0 (40.0-54.0) % MCV 80 (80-98) fL MCH 27 (27-31) pg MCHC 34 (32-36) % Plt Count 266 (150-400) K/uL Sodium 145 (140-148) mmol/L Potassium 4.2 (3.6-5.2) mmol/L Chloride 107 (100-108) mmol/L Carbon Dioxide 28 (21-32) mmol/L Anion Gap 9.6 (5.0-14.0) mmol/L BUN 13 (7-18) mg/dL Creatinine 0.8 (0.8-1.3) mg/dL Est Cr Clr Drug Dosing 137.27 mL/min Estimated GFR (MDRD) > 60 (>60) Glucose 94 (74-106) mg/dL Calcium 9.0 (8.5-10.1) mg/dL Phosphorus 3.6 (2.5-4.9) mg/dL Magnesium 2.3 (1.8-2.4) mg/dL Ferritin 130 (8-388) ng/ml Total Bilirubin 0.6 (0.2-1.0) mg/dL AST 22 (15-37) U/L ALT 29 (12-78) U/L Alkaline Phosphatase 58 (46-116) U/L Total Protein 7.3 (6.4-8.2) g/dL Albumin 4.0 (3.4-5.0) g/dL Globulin 3.3 (2.3-3.5) g/dL Albumin/Globulin Ratio 1.2 (1.2-2.2) Vitamin B12 309 (193-986) pg/ml Vitamin D 25-Hydroxy (30-100) ng/mL Folate > 20.0 (8.6-58.9) ng/ml 06/05/17 Range/Units 12:32 WBC (4.5-11.0) K/uL RBC (4.30-5.90) M/uL Hgb (12.0-15.0) g/dL Hct (40.0-54.0) % MCV (80-98) fL MCH (27-31) pg MCHC (32-36) % Plt Count (150-400) K/uL Sodium (140-148) mmol/L Potassium (3.6-5.2) mmol/L Chloride (100-108) mmol/L Carbon Dioxide (21-32) mmol/L Anion Gap (5.0-14.0) mmol/L BUN (7-18) mg/dL Creatinine (0.8-1.3) mg/dL Est Cr Clr Drug Dosing mL/min Estimated GFR (MDRD) (>60) Glucose (74-106) mg/dL Calcium (8.5-10.1) mg/dL Phosphorus (2.5-4.9) mg/dL Magnesium (1.8-2.4) mg/dL Ferritin (8-388) ng/ml Total Bilirubin (0.2-1.0) mg/dL AST (15-37) U/L ALT (12-78) U/L Alkaline Phosphatase (46-116) U/L Total Protein (6.4-8.2) g/dL Albumin (3.4-5.0) g/dL Globulin (2.3-3.5) g/dL Albumin/Globulin Ratio (1.2-2.2) Vitamin B12 (193-986) pg/ml Vitamin D 25-Hydroxy 21.8 L (30-100) ng/mL Folate (8.6-58.9) ng/ml Med Orders - Current: Current Medications Acetaminophen (Tylenol) 650 mg PO Q4H PRN PRN Reason: FEVER/PAIN Acetaminophen (Tylenol) 650 mg RECTAL Q4H PRN PRN Reason: FEVER/PAIN Clonazepam (Klonopin) 0.5 mg PO BID [facility] Last Admin: 06/05/17 21:59 Dose: 0.5 mg Gabapentin (Neurontin) 300 mg PO BEDTIME [facility] Last Admin: 06/05/17 21:59 Dose: 300 mg Glycopyrrolate (Glycopyrrolate) 0.4 mg IV ONCALL ONE Stop: 06/06/17 09:01 Dextrose/Lactated Ringer's (Dextrose 5%-Lactated Ringers) 1,000 mls @ 150 mls/ hr IV ASDIRECTED [facility] Last Admin: 06/06/17 00:34 Dose: 150 mls/hr Metoclopramide HCl (Reglan) 10 mg IV Q6H [facility] Last Admin: 06/06/17 02:43 Dose: 10 mg Ondansetron HCl (Zofran) 4 mg IV Q4H PRN PRN Reason: N/V Pantoprazole Sodium (Protonix Iv) 40 mg IV Q12H [facility] Last Admin: 06/06/17 02:43 Dose: 40 mg Discontinued Medications Multivitamins/Minerals 10 ml/Magnesium Sulfate 2 gm/ Folic Acid 1 mg/ Lactated Ringer's 1,014.2 mls @ 500 mls/hr IV ONETIME ONE Stop: 06/05/17 18:01 Last Admin: 06/05/17 15:37 Dose: 500 mls/hr - Exam Quality Assessment: DVT Prophylaxis General: Alert, Oriented, Cooperative HEENT: Pupils Equal, Pupils Reactive Lungs: Clear to Auscultation, Normal Respiratory Effort Cardiovascular: Regular Rate, Regular Rhythm GI/Abdominal Exam: Non-Tender (Male) Exam: Deferred Back Exam: Normal Inspection, Full Range of Motion Extremities: Normal Inspection Skin: Warm, Dry, Intact Neurological: No New Focal Deficit Psy/Mental Status: Alert, Normal Affect, Normal Mood - Problem List Review Problem List Initiated/Reviewed/Updated: Yes - My Orders Last 24 Hours: My Active Orders 06/05/17 12:47 Acetaminophen [Tylenol] 650 mg PO Q4H PRN Acetaminophen [Tylenol] 650 mg RECTAL Q4H PRN Ondansetron [Zofran] 4 mg IV Q4H PRN 06/05/17 13:00 Dextrose 5%-Lactated Ringers 1,000 ml IV ASDIRECTED 06/05/17 14:00 Metoclopramide [Reglan] 10 mg IV Q6H Pantoprazole [ProTONIX IV] 40 mg IV Q12H 06/05/17 21:00 ClonazePAM [KlonoPIN] 0.5 mg PO BID Gabapentin [Neurontin] 300 mg PO BEDTIME 06/06/17 09:00 Glycopyrrolate 0.4 mg IV ONCALL ONE - Assessment Assessment:: Nausea and Vomiting - resolved Dysphagia Plan: Orders to be written after EGD Ivette Sandra - Plan Plan:: Dehydration Nausea and Vomiting SP Partial Gastrectomy Plan: Admit to [facility] for Observation EGD with Dilation Scheduled for 06/06/17 - IV Sedation See Copy of Admission Orders in EMR Ivette Sandra
[2017-06-06] MEDS ORDERED: Glycopyrrolate 0.2 MG/ML 2 ML SDV IV ONE (09:00)
[2017-06-06] MEDS ORDERED: Midazolam 1 MG/ML 2 ML SDV ONE (09:14)
[2017-06-06] MEDS ORDERED: fentaNYL 100 MCG/2 ML SDV ONE (09:14)
[2017-06-06] MEDS ORDERED: Propofol 200 MG/20 ML SDV ONE (09:14)
[2017-06-06] MEDS: ClonazePAM 0.5 MG Tab PO SCH (11:04)
[2017-06-06 11:06] VITALS: BP 116/68
--- NOTE | 2017-06-06 15:18 | OR ---
DATE OF PROCEDURE: 06/06/2017 PREOPERATIVE DIAGNOSIS: Dysphagia, status post partial gastrectomy. POSTOPERATIVE DIAGNOSES: Dysphagia associated with a tight stricture at esophagojejunostomy. OPERATIVE PROCEDURE: Upper GI endoscopy with dilation of esophagojejunostomy. ANESTHESIA: IV sedation. INDICATION FOR PROCEDURE: The patient was admitted overnight with worsening problems with dysphagia. He is status post a partial gastrectomy with John-en-Y esophagojejunostomy for gastroparesis. The plan is to proceed with an upper GI endoscopy with dilation as indicated. Potential risks including bleeding and perforation were discussed, and the patient wishes to proceed. DETAILS OF PROCEDURE: The patient was taken to the operating room and placed in a left lateral decubitus position. IV sedation was administered, after which the upper GI endoscope was passed orally through the length of the esophagus and into the area of esophagojejunostomy. No retained food or fluid was noted. Mucosa itself was not inflamed per se, but there was a tight stricture at that anastomosis measuring around 4 or 5 mm in diameter. Bard gastrointestinal balloon catheter was then centered across the anastomosis and inflated to 36-Bengali size. This was held in position for 1 minute, after which the balloon catheter was deflated and withdrawn. The scope could easily then be passed through the area of the anastomosis. No complications were noted. The procedure concluded. The patient was taken to the recovery room in a satisfactory condition. Myles Haney MD /[id number]
--- NOTE | 2017-06-11 09:25 | DISCH ---
FINAL DIAGNOSIS: Strictured esophagojejunostomy. SECONDARY DIAGNOSES: 1. History of type 2 diabetes mellitus. 2. History of gastroparesis. 3. History of proximal esophagogastrectomy with John-en-Y esophagojejunostomy. 4. History of schizophrenia. PROCEDURES: On 06/06/2017, upper GI endoscopy with dilation of esophagojejunostomy. HOSPITAL COURSE: This is a 37-year-old male presenting with severe dysphagia and dehydration. The patient was admitted for initial rehydration, subsequently underwent an upper GI endoscopy which showed a fairly tight stricture at the esophagojejunostomy, was dilated on 06/06/2017, and subsequently the patient was able to take in liquids, will be discharged home later today with instructions to maintain a liquid diet for the next 5 days, and then advance to solids as tolerated. Otherwise, continue the present medications and follow up with Ivette Tripp will be in roughly 7 to 10 days.
== END 2017-06-06 15:25 | disposition home or self-care (01) ==
LOC: JP.MS 11:57
PROVIDERS: ADMIT Surgery; ATTEND Surgery
DX: K91.89 Other postprocedural complications and disorders of digestive system (principal); R13.10 Dysphagia, unspecified; I10 Essential (primary) hypertension; K21.9 Gastro-esophageal reflux disease without esophagitis; E11.9 Type 2 diabetes mellitus without complications; E55.9 Vitamin D deficiency, unspecified; Z88.0 Allergy status to penicillin; Z90.3 Acquired absence of stomach [part of]; Z88.8 Allergy status to other drugs, medicaments and biological substances; Z79.899 Other long term (current) drug therapy; Z90.49 Acquired absence of other specified parts of digestive tract; F17.210 Nicotine dependence, cigarettes, uncomplicated
CPT/HCPCS: 36415; 43245; 80053; 82306; 82607; 82728; 82746; 83735; 84100; 85027; 96361; 96365; 96366; 96375; 96376; A9270; C9113; G0378; J2250; J2704; J2765; J3010; J3475; J7042; J7120; J3490

== ENCOUNTER 2017-10-22 12:05 | Emergency (ER) | payer MEDICARE, MEDICAID ==
[2017-10-22 12:51] VITALS: BP 129/76
--- NOTE | 2017-10-22 13:36 | EDM.PDOC ---
ED HPI GENERAL MEDICAL PROBLEM - General Chief Complaint: Gastrointestinal Problem Stated Complaint: SPITTING UP BLOOD Time Seen by Provider: 10/22/17 13:29 Source of Information: Reports: Patient, RN Notes Reviewed History Limitations: Reports: No Limitations - History of Present Illness INITIAL COMMENTS - FREE TEXT/NARRATIVE: 37-year-old gentleman presents to the emergency department with the complaint of vomiting of blood. He has a history of John-en-Y gastric bypass has had an episode of hematemesis in the past about 10 months ago. He states this event is very similar to prior. At this time he is symptomatic free Abdominal Pain Score (Numeric/FACES): 4 - Related Data Allergies Allergy/AdvReac Type Severity Reaction Status Date / Time lithium [[place]] Allergy Liver Verified 10/22/17 12:51 Problems Penicillins Allergy Cannot Verified 10/22/17 12:51 Remember aspirin AdvReac Bleeding Verified 10/22/17 12:51 divalproex sodium AdvReac Liver Verified 10/22/17 12:51 [From Depakote] Problems quetiapine fumarate AdvReac Liver Verified 10/22/17 12:51 [From Seroquel] Problems Home Meds: Home Meds ARIPiprazole [Abilify Maintena] 400 mg IM .EVERY 30 DAY 09/28/15 [History] clonazePAM [Clonazepam] 0.5 mg PO BID 11/02/15 [History] Loratadine [Claritin] 10 mg PO DAILY PRN 10/24/16 [History] Gabapentin [Neurontin] 300 mg PO BEDTIME 10/17/17 [History] Hyoscyamine Sulfate [Levsin-Sl] 0.125 mg SL Q4HR PRN 10/17/17 [History] Nicotine Polacrilex [Nicorette] 4 mg BC ASDIRECTED 10/17/17 [History] Pediatric Multivit Comb No.101 [Children's Multivitamin] 1 tab PO BID 10/17/17 [ History] Pantoprazole Sodium [Protonix] 40 mg PO DAILY #30 tablet. 10/22/17 [Rx] Past Medical History Gastrointestinal History: Reports: GERD Musculoskeletal History: Reports: Back Pain, Chronic, Osteoarthritis, Other ( See Below) Other Musculoskeletal History: Recent back/neck sork comp claim from 01/02/16 Neurological History: Reports: Concussion, Head Trauma Other Neuro History: 2009 head injury Psychiatric History: Reports: Bipolar, Mood Swings, Psych Hospitalization(s), PTSD, Suicide Attempt, Suicidal Ideation Other Psychiatric History: Yeny Munguia in 2012 Endocrine/Metabolic History: Reports: Vitamin D Deficiency Hematologic History: Reports: B12 Deficiency - Past Surgical History Head Surgeries/Procedures: Reports: None HEENT Surgical History: Reports: Eye Surgery GI Surgical History: Reports: Cholecystectomy, EGD, Esophageal Dilatation, Saji Fundoplication, Other (See Below) Other GI Surgeries/Procedures: gastrectomy 12/11/16 Musculoskeletal Surgical History: Reports: Arthroscopic Knee Dermatological Surgical History: Reports: None Social & Family History - Family History Family Medical History: Noncontributory Psychiatric: Reports: Other (See Below) Other Psychiatric Family History: sisters have mental illness Endocrine/Metabolic: Reports: Diabetes, type II Other Endocrine/Metabolic Family History: mother had diabetes - Tobacco Use Tobacco Use Comment: current some day smoker - Caffeine Use Caffeine Use: Reports: Coffee - Recreational Drug Use Recreational Drug Use: No ED ROS GENERAL - Review of Systems Review Of Systems: See Below Constitutional: Reports: No Symptoms HEENT: Reports: No Symptoms Respiratory: Reports: No Symptoms Cardiovascular: Reports: No Symptoms GI/Abdominal: Reports: Hematemesis, Nausea : Reports: No Symptoms Musculoskeletal: Reports: No Symptoms Skin: Reports: No Symptoms Neurological: Reports: No Symptoms ED EXAM, GI/ABD - Physical Exam Exam: See Below Exam Limited By: No Limitations General Appearance: Alert, WD/WN, No Apparent Distress Head: Atraumatic, Normocephalic Neck: Normal Inspection, Supple, Non-Tender, Full Range of Motion Respiratory/Chest: No Respiratory Distress, Lungs Clear, Normal Breath Sounds, No Accessory Muscle Use, Chest Non-Tender Cardiovascular: Regular Rate, Rhythm, No Murmur GI/Abdominal Exam: Soft, Non-Tender Course - Vital Signs Last Recorded V/S: Last Vital Signs Temp 98.1 F 10/22/17 12:48 Pulse 69 10/22/17 12:48 Resp 16 10/22/17 12:48 BP 129/76 10/22/17 12:48 Pulse Ox 98 10/22/17 12:48 - Orders/Labs/Meds Orders: Active Orders 24 hr Category Date Time Status Peripheral IV Care [RC] . DIRECTED Care 10/22/17 14:23 Active Sodium Chloride 0.9% [Saline Flush] Med 10/22/17 14:23 Active 10 ml FLUSH ASDIRECTED PRN Peripheral IV Insertion Adult [OM.PC] Urgent Oth 10/22/17 14:22 Ordered Medication Orders Sodium Chloride (Saline Flush) 10 ml FLUSH ASDIRECTED PRN PRN Reason: Keep Vein Open Labs: Laboratory Tests 10/22/17 10/22/17 Range/Units 13:38 13:38 WBC 8.9 (4.5-11.0) K/uL RBC 5.79 (4.30-5.90) M/uL Hgb 16.3 H (12.0-15.0) g/dL Hct 47.2 (40.0-54.0) % MCV 82 (80-98) fL MCH 28 (27-31) pg MCHC 35 (32-36) % Plt Count 295 (150-400) K/uL Neut % (Auto) 61 (36-66) % Lymph % (Auto) 27 (24-44) % [place] % (Auto) 8 H (2-6) % Eos % (Auto) 4 (2-4) % Baso % (Auto) 0 (0-1) % Sodium 137 L (140-148) mmol/L Potassium 4.3 (3.6-5.2) mmol/L Chloride 103 (100-108) mmol/L Carbon Dioxide 29 (21-32) mmol/L Anion Gap 9.3 (5.0-14.0) mmol/L BUN 10 (7-18) mg/dL Creatinine 0.8 (0.8-1.3) mg/dL Est Cr Clr Drug Dosing 137.27 mL/min Estimated GFR (MDRD) > 60 (>60) Glucose 89 (74-106) mg/dL Calcium 8.5 (8.5-10.1) mg/dL Meds: Medications Generic Name Dose Route Start Last Admin Trade Name Freq PRN Reason Stop Dose Admin Sodium Chloride 10 ml 10/22/17 14:23 Saline Flush FLUSH ASDIRECTED PRN Keep Vein Open Discontinued Medications Generic Name Dose Route Start Last Admin Trade Name Freq PRN Reason Stop Dose Admin Pantoprazole Sodium 40 mg 10/22/17 14:23 Protonix Iv IVPUSH 10/22/17 14:24 ONETIME ONE Departure - Departure Time of Disposition: 14:39 Disposition: Home, Self-Care 01 Condition: Good Clinical Impression: Hematemesis Qualifiers: Nausea presence: with nausea Qualified Code(s): K92.0 - Hematemesis - Discharge Information Prescriptions: Pantoprazole Sodium [Protonix] 40 mg PO DAILY #30 tablet. Referrals: Kanu Narvaez MD [Primary Care Provider] - Forms: ED Department Discharge Additional Instructions: Continue to use her Zofran as needed for nausea symptoms, start the medication of Protonix 1 tablet each day tomorrow please follow-up with Dr. Haney for an upper endoscopy on of this week, call or return to the emergency department with worsening of symptoms - My Orders Last 24 Hours: My Active Orders 10/22/17 14:22 Peripheral IV Insertion Adult [OM.PC] Urgent 10/22/17 14:23 Peripheral IV Care [RC] . DIRECTED Sodium Chloride 0.9% [Saline Flush] 10 ml FLUSH ASDIRECTED PRN - Assessment/Plan Last 24 Hours: My Active Orders 10/22/17 14:22 Peripheral IV Insertion Adult [OM.PC] Urgent 10/22/17 14:23 Peripheral IV Care [RC] . DIRECTED Sodium Chloride 0.9% [Saline Flush] 10 ml FLUSH ASDIRECTED PRN Plan: Assessment Acuity = acute Site and laterality = hematoemesis, again the patient with known history gastric bypass Etiology = unknown etiology Manifestations = none Location of injury = Home Lab values = CBC and CMP were unremarkable Plan Called discussed case with Dr. Haney general surgery recommended 40 mg IV Protonix now start Protonix 40 mg once a day set up for upper GI on of this week This note was dictated using [employer] voice recognition software please call with any questions on syntax or grammar.
[2017-10-22] MEDS ORDERED: Sodium Chloride 0.9% 10 ML Syringe FLUSH PRN (14:23)
[2017-10-22] MEDS ORDERED: Pantoprazole 40 MG Vial IVPUSH ONE (14:23)
== END 2017-10-22 15:13 | disposition home or self-care (01) ==
LOC: JP.ED 12:05
DX: K92.0 Hematemesis (principal); F17.200 Nicotine dependence, unspecified, uncomplicated; Z88.0 Allergy status to penicillin; Z88.6 Allergy status to analgesic agent; Z88.8 Allergy status to other drugs, medicaments and biological substances; Z79.899 Other long term (current) drug therapy
CPT/HCPCS: 36415; 80048; 85025; 96374; 99283; 99284-25; C9113; J7050

== ENCOUNTER 2017-10-24 07:47 | Day surgery (SDC) | payer MEDICARE, MEDICAID ==
[~2017-10-24 07:47] MED LIST changes: +Cyanocobalamin (Vitamin B12) 1,000 MCG/ML SDV IM ONE; +Glycopyrrolate 0.2 MG/ML 2 ML SDV IVPUSH ONE; +Lactated Ringers 1,000 ML IV SCH; +MVI, Adult with Vitamin K 10 ML, Thiamine 100 MG, Chromium/Copper/Mang/Selen/Zn 1 ML in... IV ONE; -Midazolam 1 MG/ML 2 ML SDV ONE; -Propofol 200 MG/20 ML SDV ONE; -fentaNYL 100 MCG/2 ML SDV ONE
[2017-10-24] MEDS ORDERED: Dextrose 5%-Lactated Ringers 1,000 ML IV SCH (08:45)
[2017-10-24] MEDS ORDERED: Midazolam 1 MG/ML 2 ML SDV ONE (09:11)
[2017-10-24] MEDS ORDERED: fentaNYL 100 MCG/2 ML SDV ONE (09:11)
[2017-10-24] MEDS ORDERED: Propofol 200 MG/20 ML SDV ONE (09:11)
[2017-10-24] MEDS ORDERED: Glycopyrrolate 0.2 MG/ML 2 ML SDV IVPUSH ONE (09:30)
[2017-10-24 11:42] VITALS: BP 118/74
--- NOTE | 2017-10-28 16:26 | OR ---
DATE OF PROCEDURE: 10/24/2017 PREOPERATIVE DIAGNOSIS: History of dysphagia and hematemesis status post partial gastrectomy and John-en-Y gastrojejunostomy. POSTOPERATIVE DIAGNOSIS: Mild stricture of gastrojejunostomy. PROCEDURE: Upper GI endoscopy with dilation of gastrojejunostomy (28642). ANESTHESIA: IV sedation. INDICATION FOR PROCEDURE: This is a 37-year-old male presenting with a history of increasing dysphagia as well as some reported hematemesis. Presently, he is on Protonix 40 mg a day. The plan is to proceed with upper GI endoscopy with dilation of the gastrojejunostomy as indicated as well as possible biopsies. Potential risks including bleeding and perforation were discussed, and the patient wishes to proceed. DETAILS OF PROCEDURE: The patient was taken to the operating room, placed in left lateral decubitus position. IV sedation was administered, after which the upper GI endoscope was passed orally through the length of the esophagus and into the gastric pouch. The 1 cm scope could not quite be passed through the anastomosis. At this point, no significant mucosal inflammation or ulceration present. Bard gastrointestinal balloon catheter was centered across the anastomosis and initially inflated to 45-Martiniquais size. It was felt at that point with the appearance of the anastomosis, we could dilate this to 54-Martiniquais size which was done next. It was held in position for 1 minute, after which the balloon catheter was deflated and withdrawn. The scope was then passed through the anastomosis with no complications noted, and there did not appear to be any areas of ulceration or likely recent hematemesis. The scope was withdrawn. The procedure then concluded. The patient was taken to the recovery room in satisfactory condition. Plan will be to have the patient continue on the Protonix 40 mg daily and followup will be with Ivette Tripp in 1 month. Myles Haney MD /[id number]
== END 2017-10-24 11:45 | disposition home or self-care (01) ==
LOC: JP.SDS 07:47
PROVIDERS: ATTEND Surgery
DX: K91.89 Other postprocedural complications and disorders of digestive system (principal); I10 Essential (primary) hypertension; F17.210 Nicotine dependence, cigarettes, uncomplicated; K21.9 Gastro-esophageal reflux disease without esophagitis; Z98.84 Bariatric surgery status; Z90.3 Acquired absence of stomach [part of]
CPT/HCPCS: 43245; J2250; J2704; J3010; J7042; J3490

== ENCOUNTER 2019-03-04 20:46 | Emergency (ER) | payer MEDICARE, MEDICAID ==
[2019-03-04 20:49] VITALS: BP 147/81; PULSE 91
--- NOTE | 2019-03-04 21:07 | EDM.PDOC ---
ED HPI GENERAL MEDICAL PROBLEM - General Chief Complaint: Abdominal Pain Stated Complaint: [facility] Time Seen by Provider: 03/04/19 20:55 Source of Information: Reports: Patient, EMS History Limitations: Reports: No Limitations - History of Present Illness INITIAL COMMENTS - FREE TEXT/NARRATIVE: 38-year-old male who is been feeling fine, ate a burrito tonight and afterwards felt nauseous and ill. Over the past 30 minutes he's had several emesis, he thought he saw blood in his emesis so called the ambulance. He had a similar episode one year ago, and upper endoscopy was negative. He had one frothy emesis while I was in the exam room with the patient and there was no evidence of blood. He had some left upper quadrant abdominal pain which seems to have resolved. No fevers or chills. He has not had any recent illness and felt fine up until an hour ago. Onset: Sudden Duration: Hour(s): (Within the last hour) Location: Reports: Abdomen Associated Symptoms: Reports: Malaise, Nausea/Vomiting. Denies: Confusion, Chest Pain, Cough, Fever/Chills, Shortness of Breath left side abd pain Pain Score (Numeric/FACES): 4 - Related Data Allergies Allergy/AdvReac Type Severity Reaction Status Date / Time lithium [[place]] Allergy Liver Verified 10/24/17 08:09 Problems Penicillins Allergy Cannot Verified 10/24/17 08:09 Remember aspirin AdvReac Bleeding Verified 10/24/17 08:09 divalproex sodium AdvReac Liver Verified 10/24/17 08:09 [From Depakote] Problems quetiapine fumarate AdvReac Liver Verified 10/24/17 08:09 [From Seroquel] Problems Home Meds: Home Meds ARIPiprazole [Abilify Maintena] 400 mg IM .EVERY 30 DAY 09/28/15 [History] clonazePAM [Clonazepam] 0.5 mg PO BID PRN 11/02/15 [History] Loratadine [Claritin] 10 mg PO DAILY PRN 10/24/16 [History] Gabapentin [Neurontin] 300 mg PO BEDTIME PRN 10/17/17 [History] Hyoscyamine Sulfate [Levsin-Sl] 0.125 mg SL Q4HR PRN 10/17/17 [History] Nicotine Polacrilex [Nicorette] 4 mg BC ASDIRECTED 10/17/17 [History] Pediatric Multivit Comb No.101 [Children's Multivitamin] 1 tab PO BID 10/17/17 [ History] Pantoprazole Sodium [Protonix] 40 mg PO DAILY #30 tablet. 10/22/17 [Rx] Cyanocobalamin (Vitamin B-12) [Vitamin B-12] 1,000 mcg SL DAILY 10/23/17 [ History] Past Medical History HEENT History: Reports: Allergic Rhinitis Cardiovascular History: Reports: None Respiratory History: Reports: None Gastrointestinal History: Reports: Gastritis, GERD Genitourinary History: Reports: None Musculoskeletal History: Reports: Back Pain, Chronic, Osteoarthritis, Other ( See Below) Other Musculoskeletal History: Recent back/neck sork comp claim from 01/02/16 Neurological History: Reports: Concussion, Head Trauma Other Neuro History: 2008 head injury Psychiatric History: Reports: Bipolar, Mood Swings, Psych Hospitalization(s), PTSD, Suicide Attempt, Suicidal Ideation Other Psychiatric History: Yeny Munguia in 2012 Endocrine/Metabolic History: Reports: Vitamin D Deficiency Hematologic History: Reports: B12 Deficiency Immunologic History: Reports: None Oncologic (Cancer) History: Reports: None Dermatologic History: Reports: None - Infectious Disease History Infectious Disease History: Reports: None - Past Surgical History Head Surgeries/Procedures: Reports: None HEENT Surgical History: Reports: Eye Surgery Cardiovascular Surgical History: Reports: None Respiratory Surgical History: Reports: None GI Surgical History: Reports: Cholecystectomy, EGD, Esophageal Dilatation, Saji Fundoplication, Other (See Below) Other GI Surgeries/Procedures: gastrectomy 12/11/16 Male Surgical History: Reports: None Endocrine Surgical History: Reports: None Neurological Surgical History: Reports: None Musculoskeletal Surgical History: Reports: Arthroscopic Knee Oncologic Surgical History: Reports: None Dermatological Surgical History: Reports: None Social & Family History - Family History Family Medical History: Noncontributory Psychiatric: Reports: Other (See Below) Other Psychiatric Family History: sisters have mental illness Endocrine/Metabolic: Reports: Diabetes, type II Other Endocrine/Metabolic Family History: mother had diabetes - Caffeine Use Caffeine Use: Reports: Coffee ED ROS GENERAL - Review of Systems Review Of Systems: See Below Constitutional: Reports: Malaise. Denies: Fever, Chills HEENT: Reports: No Symptoms Respiratory: Denies: Shortness of Breath Cardiovascular: Denies: Chest Pain GI/Abdominal: Reports: Abdominal Pain, Hematemesis, Nausea, Vomiting : Reports: No Symptoms Skin: Reports: No Symptoms Neurological: Denies: Headache ED EXAM, GI/ABD - Physical Exam Exam: See Below Exam Limited By: No Limitations General Appearance: Alert, No Apparent Distress Eyes: Bilateral: Normal Appearance Head: Atraumatic Respiratory/Chest: No Respiratory Distress, Lungs Clear Cardiovascular: Regular Rate, Rhythm GI/Abdominal Exam: Normal Bowel Sounds, Soft, Tender (Reacts with some mild tenderness to the right upper quadrant at this time, no guarding or rebound) Neurological: Alert, Oriented Psychiatric: Normal Affect, Normal Mood Skin Exam: Warm, Dry Course - Vital Signs Last Recorded V/S: Last Vital Signs Temp 98.3 F 03/04/19 21: Pulse 91 03/04/19 21:01 Resp 12 03/04/19 21:01 BP 147/81 H 03/04/19 21: Pulse Ox 96 03/04/19 21:01 - Orders/Labs/Meds Labs: Laboratory Tests 03/04/19 03/04/19 Range/Units 21:10 21:10 WBC 12.5 H (4.5-11.0) K/uL RBC 5.98 H (4.30-5.90) M/uL Hgb 16.5 H (12.0-15.0) g/dL Hct 48.2 (40.0-54.0) % MCV 81 (80-98) fL MCH 28 (27-31) pg MCHC 34 (32-36) % Plt Count 328 (150-400) K/uL Neut % (Auto) 73 H (36-66) % Lymph % (Auto) 15 L (24-44) % [place] % (Auto) 8 H (2-6) % Eos % (Auto) 4 (2-4) % Baso % (Auto) 0 (0-1) % Sodium 142 (140-148) mmol/L Potassium 3.5 L (3.6-5.2) mmol/L Chloride 106 (100-108) mmol/L Carbon Dioxide 25 (21-32) mmol/L Anion Gap 14.5 H (5.0-14.0) mmol/L BUN 7 (7-18) mg/dL Creatinine 0.9 (0.8-1.3) mg/dL Est Cr Clr Drug Dosing 120.85 mL/min Estimated GFR (MDRD) > 60 (>60) Glucose 107 H (74-106) mg/dL Calcium 8.7 (8.5-10.1) mg/dL Total Bilirubin 0.3 (0.2-1.0) mg/dL AST 19 (15-37) U/L ALT 32 (12-78) U/L Alkaline Phosphatase 92 (46-116) U/L Total Protein 7.8 (6.4-8.2) g/dL Albumin 3.9 (3.4-5.0) g/dL Globulin 3.9 H (2.3-3.5) g/dL Albumin/Globulin Ratio 1.0 L (1.2-2.2) Meds: Medications Discontinued Medications Generic Name Dose Route Start Last Admin Trade Name Freq PRN Reason Stop Dose Admin Ondansetron HCl 4 mg 03/04/19 21:03 03/04/19 21:16 Zofran Odt PO 03/04/19 21:04 4 mg ONETIME ONE Administration - Re-Assessments/Exams Free Text/Narrative Re-Assessment/Exam: 03/04/19 21:06 Patient was given one sublingual Zofran and we will check a CBC and CMP. He was reassured that the burrito likely upset his stomach. 03/04/19 21:44 Patient responded well to the sublingual Zofran, had no further emesis and felt fine. His labs were reassuring. He was discharged with 5 additional doses of Zofran to take every 4-6 hours if needed, and can recheck in the next 24-48 hours if symptoms recur and are persistent. He especially needs to be rechecked if he feels he is vomiting blood. Departure - Departure Time of Disposition: 21:55 Disposition: Home, Self-Care 01 Clinical Impression: Nausea and vomiting Qualifiers: Vomiting type: unspecified Vomiting Intractability: non-intractable Qualified Code(s): R11.2 - Nausea with vomiting, unspecified Abdominal pain Qualifiers: Abdominal location: left upper quadrant Qualified Code(s): R10.12 - Left upper quadrant pain - Discharge Information Instructions: Nausea and Vomiting, Adult, [id number] Referrals: PCP,None [Primary Care Provider] - Forms: ED Department Discharge Care Plan Goals: Just clear liquids tonight, and tomorrow advance diet slowly as tolerated. Use Zofran under your tongue every 4-6 hours if nausea recurs. Return if you feel you are vomiting blood.
[2019-03-04] MEDS: Ondansetron 4 MG Tab.DIS PO ONE (21:16)
== END 2019-03-04 21:55 | disposition home or self-care (01) ==
LOC: JP.ED 20:46
DX: R10.12 Left upper quadrant pain (principal); R11.2 Nausea with vomiting, unspecified; K21.9 Gastro-esophageal reflux disease without esophagitis; Z88.8 Allergy status to other drugs, medicaments and biological substances; Z88.0 Allergy status to penicillin; Z79.899 Other long term (current) drug therapy
CPT/HCPCS: 36415; 80053; 85025; 99283; 99285; A9270

== ENCOUNTER 2019-12-05 19:07 | Emergency (ER) | payer MEDICARE, MEDICAID, OTHER ==
--- NOTE | 2019-12-05 19:48 | EDM.PDOC ---
ED HPI GENERAL MEDICAL PROBLEM - General Chief Complaint: Lower Extremity Injury/Pain Stated Complaint: HURT LEFT ANKLE Time Seen by Provider: 12/05/19 19:45 Source of Information: Reports: Patient, Old Records, RN History Limitations: Reports: No Limitations - History of Present Illness INITIAL COMMENTS - FREE TEXT/NARRATIVE: 39 yo NA male presents with L ankle pain/redness and a low grade fever. He states that he tripped on a side walk a couple days ago and injured that ankle. Since then the ankle has gotten swollen and red. He has equal amts of pain to the medial and lateral ankle. No self tx. No hx of gout. Denies regular ETOH consumption. Has no other sx's to other areas of his body. Walks with a limp. Onset: Gradual Onset Date: 12/03/19 Duration: Day(s): (2), Getting Worse Location: Reports: Lower Extremity, Left Quality: Reports: Ache Severity: Moderate Improves with: Reports: Rest Worsens with: Reports: Movement Context: Reports: Trauma Associated Symptoms: Reports: Fever/Chills (has a low grade fever here, was unaware of this before arrival. ) Treatments [employer]ER [employer]S: Reports: Other (see below) (none) left ankle Pain Score (Numeric/FACES): 10 - Related Data Allergies Allergy/AdvReac Type Severity Reaction Status Date / Time lithium [[place]] Allergy Liver Verified 12/05/19 19:27 Problems Penicillins Allergy Cannot Verified 12/05/19 19:27 Remember aspirin AdvReac Bleeding Verified 12/05/19 19:27 divalproex sodium AdvReac Liver Verified 12/05/19 19:27 [From Depakote] Problems quetiapine fumarate AdvReac Liver Verified 12/05/19 19:27 [From Seroquel] Problems Home Meds: Home Meds ARIPiprazole [Abilify Maintena] 400 mg IM Q30D 12/05/19 [History] Cyanocobalamin (Vitamin B12) [Cyanocobalamin] 30,000 mcg .XX Q30D 12/05/19 [History] Cyclobenzaprine [Flexeril] 10 mg PO TID 12/05/19 [History] Gabapentin [Neurontin] 1 tab PO BEDTIME 12/05/19 [History] Past Medical History HEENT History: Reports: Allergic Rhinitis Cardiovascular History: Reports: None Respiratory History: Reports: None Gastrointestinal History: Reports: Gastritis, GERD Genitourinary History: Reports: None Musculoskeletal History: Reports: Back Pain, Chronic, Osteoarthritis, Other (See Below) Other Musculoskeletal History: Recent back/neck sork comp claim from 01/02/16 Neurological History: Reports: Concussion, Head Trauma Other Neuro History: 2009 head injury Psychiatric History: Reports: Bipolar, Mood Swings, Psych Hospitalization(s), PTSD, Suicide Attempt, Suicidal Ideation Other Psychiatric History: Yeny Munguia in 2012 Endocrine/Metabolic History: Reports: Vitamin D Deficiency Hematologic History: Reports: B12 Deficiency Immunologic History: Reports: None Oncologic (Cancer) History: Reports: None Dermatologic History: Reports: None - Infectious Disease History Infectious Disease History: Reports: None - Past Surgical History Head Surgeries/Procedures: Reports: None HEENT Surgical History: Reports: Eye Surgery Cardiovascular Surgical History: Reports: None Respiratory Surgical History: Reports: None GI Surgical History: Reports: Bariatric Procedure, Cholecystectomy, EGD, Esophageal Dilatation, Saji Fundoplication, Other (See Below) Other GI Surgeries/Procedures: gastrectomy 12/11/16 Male Surgical History: Reports: None Endocrine Surgical History: Reports: None Neurological Surgical History: Reports: None Musculoskeletal Surgical History: Reports: Arthroscopic Knee Oncologic Surgical History: Reports: None Dermatological Surgical History: Reports: None Social & Family History - Family History Family Medical History: Noncontributory Psychiatric: Reports: Other (See Below) Other Psychiatric Family History: sisters have mental illness Endocrine/Metabolic: Reports: Diabetes, type II Other Endocrine/Metabolic Family History: mother had diabetes - Tobacco Use Smoking Status *Q: Current Every Day Smoker Years of Tobacco use: 16 Packs/Tins Daily: 0.5 - Caffeine Use Caffeine Use: Reports: Soda - Recreational Drug Use Recreational Drug Use: No Review of Systems - Review of Systems Review Of Systems: See Below Constitutional: Reports: No Symptoms, Fever (was unaware) Eyes: Reports: No Symptoms Ears: Reports: No Symptoms Nose: Reports: No Symptoms Mouth/Throat: Reports: No Symptoms Respiratory: Reports: No Symptoms Cardiovascular: Reports: No Symptoms GI/Abdominal: Reports: No Symptoms Genitourinary: Reports: No Symptoms Musculoskeletal: Reports: Joint Pain (left ankle) Skin: Reports: Erythema (L ankle medially and laterally). Denies: Bruising, Wound Neurological: Reports: No Symptoms ED EXAM, GENERAL - Physical Exam Exam: See Below Exam Limited By: No Limitations General Appearance: Alert, WD/WN, No Apparent Distress Eye Exam: Bilateral Eye: Normal Inspection Ears: Normal External Exam, Normal Canal, Hearing Grossly Normal, Normal TMs Ear Exam: Bilateral Ear: Auricle Normal, Canal Normal, TM normal Nose: Normal Inspection, No Blood Throat/Mouth: Normal Inspection, Normal Lips, Normal Oropharynx, Normal Voice, No Airway Compromise Head: Atraumatic, Normocephalic Neck: Normal Inspection Respiratory/Chest: No Respiratory Distress, Lungs Clear, Normal Breath Sounds, No Accessory Muscle Use Cardiovascular: Regular Rate, Rhythm, No Edema, Tachycardia GI/Abdominal: Normal Bowel Sounds, Soft, Non-Tender, No Distention Back Exam: Normal Inspection. No: CVA Tenderness (R), CVA Tenderness (L) Extremities: Pedal Edema (L ankle swollen), Limited Range of Motion (due to pain), Increased Warmth (L ankle), Redness (L ankle medially and laterally). No: Non-Tender, No Pedal Edema Neurological: Alert, Oriented, CN II-XII Intact, Normal Cognition, No Motor/Sensory Deficits Psychiatric: Normal Affect, Normal Mood Skin Exam: Warm, Dry, Intact, No Rash, Erythema (L ankle), Increased Warmth (L ankle). No: Normal Color, Cyanosis, Diaphoretic, Ecchymosis, Lymphangitis, Petechiae, Wound/Incision, Zoster-Like Rash ED TRAUMA EXTREMITY PROCEDURES - Additional/Other Procedure(s) Other (Free Text) Procedure(s): prep'd L lateral ankle with alcohol. Anesth site of injection with 2 ml of 1% lido + epi. Aspirated just under a ml of clear yellow synovial fluid. Course - Vital Signs Text/Narrative:: discussed with Dr. Eli Lowe. Dr. Castle in ER there accepts in transfer @ 2150h Last Recorded V/S: Last Vital Signs Temp 36.6 C 12/05/19 21:25 Pulse 90 12/05/19 21:25 Resp 18 12/05/19 21:25 BP 145/88 H 12/05/19 21:25 Pulse Ox 97 12/05/19 21:25 - Orders/Labs/Meds Orders: Active Orders 24 hr Category Date Time Status Ankle Min 3V Lt [CR] Stat Exams 12/05/19 19:35 Taken CULTURE BODY FLUID + SMEAR [RM] Stat Lab 12/05/19 20:41 Results Sodium Chloride 0.9% [Saline Flush] Med 12/05/19 20:47 Active 10 ml FLUSH ASDIRECTED PRN Vancomycin 1.25 gm Med 12/05/19 21:00 Active Sodium Chloride 0.9% [Normal Saline] 250 ml IV Q12H Saline Lock Insert [OM.PC] Routine Oth 12/05/19 20:47 Ordered Medication Orders Vancomycin HCl 1.25 gm/ Sodium (Chloride) 250 mls @ 150 mls/hr IV Q12H LUDA Last Admin: 12/05/19 21:30 Dose: 150 mls/hr Documented by: JIMBO Sodium Chloride (Saline Flush) 10 ml FLUSH ASDIRECTED PRN PRN Reason: Keep Vein Open Last Admin: 12/05/19 21:31 Dose: 10 ml Documented by: JIMBO Labs: Laboratory Tests 12/05/19 12/05/19 12/05/19 Range/Units 20:10 20:25 21:25 WBC 13.2 H (4.5-11.0) K/uL RBC 6.00 H (4.30-5.90) M/uL Hgb 15.9 H (12.0-15.0) g/dL Hct 47.5 (40.0-54.0) % MCV 79 L (80-98) fL MCH 27 (27-31) pg MCHC 34 (32-36) % Plt Count 289 (150-400) K/uL C-Reactive Protein 1.82 H (0.0-0.3) mg/dL SARS Virus RNA (PCR) Negative (NEGATIVE) Meds: Medications Generic Name Dose Route Start Last Admin Trade Name Freq PRN Reason Stop Dose Admin Vancomycin HCl 1.25 gm/ Sodium 250 mls @ 150 mls/hr 12/05/19 21:00 12/05/19 21:30 Chloride IV 150 mls/hr Q12H LUDA Administration Sodium Chloride 10 ml 12/05/19 20:47 12/05/19 21:31 Saline Flush FLUSH 10 ml ASDIRECTED PRN Administration Keep Vein Open Discontinued Medications Generic Name Dose Route Start Last Admin Trade Name Freq PRN Reason Stop Dose Admin Acetaminophen 1,000 mg 12/05/19 20:10 12/05/19 20:17 Tylenol Extra Strength PO 12/05/19 20:11 1,000 mg ONETIME ONE Administration Lorazepam 1 mg 12/05/19 22:12 Ativan IVPUSH 12/05/19 22:13 ONETIME ONE - Radiology Interpretation Free Text/Narrative:: left ankle X-ray-neg - Re-Assessments/Exams Free Text/Narrative Re-Assessment/Exam: 12/05/19 22:41 Patient is stressed out about not knowing where his son is. Will sign out AMA instead of going to [facility]. Hopefully he will stay to conclude his antibiotic dose. Departure - Departure Time of Disposition: 23:05 Disposition: DC/Tfer to Acute Hospital 02 Condition: Fair Clinical Impression: Septic arthritis of left ankle Qualifiers: Septic arthritis organism: due to unspecified organism Qualified Code(s): M00.9 - Pyogenic arthritis, unspecified - Discharge Information *PRESCRIPTION DRUG MONITORING PROGRAM REVIEWED*: No *COPY OF PRESCRIPTION DRUG MONITORING REPORT IN PATIENT AGATHA: No Instructions: Septic Arthritis Referrals: Kanu Narvaez MD [Primary Care Provider] - Forms: ED Department Discharge Additional Instructions: Crutch walking and no weight bearing on your left foot. Elevate your leg above your heat as much as possible. Go to the [facility] ER as soon as possible to get your ankle taken care of or your infection may result in loss of limb or life!! Take acetaminophen as needed for pain relief, follow the directions on the bottle. Sepsis Event Note (ED) - Evaluation Sepsis Screening Result: No Definite Risk - Focused Exam Vital Signs: Vital Signs Temp Pulse Resp BP Pulse Ox 12/05/19 21:25 36.6 C 90 18 145/88 H 97 12/05/19 19:31 37.8 C 110 H 19 157/91 H 97 - My Orders Last 24 Hours: My Active Orders 12/05/19 19:35 Ankle Min 3V Lt [CR] Stat 12/05/19 20:41 CULTURE BODY FLUID + SMEAR [RM] Stat 12/05/19 20:47 Sodium Chloride 0.9% [Saline Flush] 10 ml FLUSH ASDIRECTED PRN Saline Lock Insert [OM.PC] Routine 12/05/19 21:00 Vancomycin 1.25 gm Sodium Chloride 0.9% [Normal Saline] 250 ml IV Q12H - Assessment/Plan Last 24 Hours: My Active Orders 12/05/19 19:35 Ankle Min 3V Lt [CR] Stat 12/05/19 20:41 CULTURE BODY FLUID + SMEAR [RM] Stat 12/05/19 20:47 Sodium Chloride 0.9% [Saline Flush] 10 ml FLUSH ASDIRECTED PRN Saline Lock Insert [OM.PC] Routine 12/05/19 21:00 Vancomycin 1.25 gm Sodium Chloride 0.9% [Normal Saline] 250 ml IV Q12H
[2019-12-05] MEDS ORDERED: Acetaminophen 500 MG Tab PO ONE (20:10)
[2019-12-05] MEDS ORDERED: Sodium Chloride 0.9% 10 ML Syringe FLUSH PRN (20:47)
[2019-12-05 21:28] VITALS: BP 145/88; PULSE 90
[2019-12-05] MEDS ORDERED: LORazepam 2 MG/ML SDV IVPUSH ONE (22:12)
--- NOTE | 2019-12-07 09:12 | CR ---
Ankle Min 3V Lt CLINICAL HISTORY: Injury FINDINGS: The soft tissues are swollen most prominent over the lateral malleolus.. No acute fracture or dislocation is noted. Ankle mortise is intact. No osseous lesion is identified. Impression: Moderate soft tissue swelling No fracture, dislocation or osseous lesion
== END 2019-12-05 23:21 | disposition left against medical advice (07) ==
LOC: JP.ED 19:07
DX: M00.9 Pyogenic arthritis, unspecified (principal); F17.210 Nicotine dependence, cigarettes, uncomplicated; Z88.6 Allergy status to analgesic agent; Z20.828 Contact with and (suspected) exposure to other viral communicable diseases; Z88.0 Allergy status to penicillin; Z88.8 Allergy status to other drugs, medicaments and biological substances; Z79.899 Other long term (current) drug therapy
CPT/HCPCS: 20605; 36415; 73610; 85027; 86140; 87070; 87077; 87186; 87205; 96365; 96366; 99283; 99284; A9270; J3370; J7050; U0002

== ENCOUNTER 2019-12-07 08:09 | Inpatient (IN) | payer MEDICARE, MEDICAID ==
[2019-12-07] MEDS ORDERED: Sodium Chloride 0.9% 10 ML Syringe FLUSH PRN ×2 (08:46→13:05)
[2019-12-07] MEDS ORDERED: LORazepam 2 MG/ML SDV IVPUSH ONE (08:50)
[2019-12-07] MEDS ORDERED: fentaNYL 100 MCG/2 ML SDV IVPUSH ONE (08:50)
[2019-12-07] MEDS ORDERED: Ondansetron 4 MG/2 ML SDV IVPUSH ONE (08:50)
[2019-12-07] MEDS ORDERED: Vancomycin 1 GM SDV IV SCH ×2 (09:00→13:05)
[2019-12-07] MEDS ORDERED: Piperacillin/Tazobactam 4.5 GM in Sodium Chloride 0.9% 100 ML IV SCH (09:00)
[2019-12-07] MEDS ORDERED: Lactated Ringers 1,000 ML IV SCH ×2 (09:00→13:05)
--- NOTE | 2019-12-07 09:00 | EDM.PDOC ---
ED HPI GENERAL MEDICAL PROBLEM - General Chief Complaint: Lower Extremity Injury/Pain Stated Complaint: MEDICAL [facility]IA [facility] Time Seen by Provider: 12/07/19 08:37 Source of Information: Reports: Patient, Old Records, RN Notes Reviewed History Limitations: Reports: Physical Impairment - History of Present Illness INITIAL COMMENTS - FREE TEXT/NARRATIVE: 39-year-old gentleman presents emergency department today complaint of painful left ankle, he was initially evaluated in the emergency department 2 days ago thought to have a septic joint was set up to see orthopedics Jose Martínez however he left AMA acceptance through the emergency department. He never sought further care was given 1 dose of vancomycin in the emergency department fluid taken from the ankle shows rare gram positive cocci. When I confronted him about this he states that he could not find a ride and was confused even though transportation was set up for him through EMS. My concern is this gentleman does have a learning disability as well as the extensive psychiatric history which can cause confusion with instructions Left Ankle Pain Score (Numeric/FACES): 10 - Related Data Allergies Allergy/AdvReac Type Severity Reaction Status Date / Time lithium [[place]] Allergy Liver Verified 12/07/19 08:24 Problems Penicillins Allergy Cannot Verified 12/07/19 08:24 Remember aspirin AdvReac Bleeding Verified 12/07/19 08:24 divalproex sodium AdvReac Liver Verified 12/07/19 08:24 [From Depakote] Problems quetiapine fumarate AdvReac Liver Verified 12/07/19 08:24 [From Seroquel] Problems Home Meds: Home Meds ARIPiprazole [Abilify Maintena] 400 mg IM Q30D 12/05/19 [History] Cyanocobalamin (Vitamin B12) [Cyanocobalamin] 30,000 mcg .XX Q30D 12/05/19 [History] Cyclobenzaprine [Flexeril] 10 mg PO TID 12/05/19 [History] Gabapentin [Neurontin] 1 tab PO BEDTIME 12/05/19 [History] Past Medical History HEENT History: Reports: Allergic Rhinitis Gastrointestinal History: Reports: Gastritis, GERD Musculoskeletal History: Reports: Back Pain, Chronic, Osteoarthritis, Other (See Below) Other Musculoskeletal History: Recent back/neck sork comp claim from 01/02/16 Neurological History: Reports: Concussion, Head Trauma Other Neuro History: 2009 head injury Psychiatric History: Reports: Bipolar, Mood Swings, Psych Hospitalization(s), PTSD, Suicide Attempt, Suicidal Ideation Other Psychiatric History: Yeny Munguia in 2013 Endocrine/Metabolic History: Reports: Vitamin D Deficiency Hematologic History: Reports: B12 Deficiency Immunologic History: Reports: None Oncologic (Cancer) History: Reports: None Dermatologic History: Reports: None - Infectious Disease History Infectious Disease History: Reports: None - Past Surgical History Head Surgeries/Procedures: Reports: None HEENT Surgical History: Reports: Eye Surgery Cardiovascular Surgical History: Reports: None Respiratory Surgical History: Reports: None GI Surgical History: Reports: Bariatric Procedure, Cholecystectomy, EGD, Esophageal Dilatation, Saji Fundoplication, Other (See Below) Other GI Surgeries/Procedures: gastrectomy 12/11/16 Male Surgical History: Reports: None Endocrine Surgical History: Reports: None Neurological Surgical History: Reports: None Musculoskeletal Surgical History: Reports: Arthroscopic Knee Oncologic Surgical History: Reports: None Dermatological Surgical History: Reports: None Social & Family History - Family History Family Medical History: Noncontributory Psychiatric: Reports: Other (See Below) Other Psychiatric Family History: sisters have mental illness Endocrine/Metabolic: Reports: Diabetes, type II Other Endocrine/Metabolic Family History: mother had diabetes - Tobacco Use Smoking Status *Q: Current Every Day Smoker Years of Tobacco use: 16 Packs/Tins Daily: 0.5 - Caffeine Use Caffeine Use: Reports: Soda - Recreational Drug Use Recreational Drug Use: No Review of Systems - Review of Systems Review Of Systems: See Below Constitutional: Reports: Fever Respiratory: Reports: No Symptoms Cardiovascular: Reports: No Symptoms GI/Abdominal: Reports: Nausea Musculoskeletal: Reports: Joint Pain (Left ankle pain) Skin: Reports: Pallor, Erythema Neurological: Reports: No Symptoms Psychiatric: Reports: No Symptoms ED EXAM, GENERAL - Physical Exam Exam: See Below Free Text/Narrative:: Examination of the left ankle it is red it is warm to the touch tender to touch there is market edema predominantly around the left ankle pedal pulses +1 Exam Limited By: Physical Impairment General Appearance: Alert, WD/WN, No Apparent Distress Respiratory/Chest: No Respiratory Distress, Lungs Clear, Normal Breath Sounds, No Accessory Muscle Use, Chest Non-Tender Cardiovascular: Regular Rate, Rhythm, No Murmur GI/Abdominal: Soft, Non-Tender Course - Vital Signs Last Recorded V/S: Last Vital Signs Temp 99.7 F 07/20/20 08:21 Pulse 90 12/07/19 09:35 Resp 16 12/07/19 09:35 BP 129/72 12/07/19 09:35 Pulse Ox 99 12/07/19 09:35 - Orders/Labs/Meds Orders: Active Orders 24 hr Category Date Time Status Blood Pressure Mgt: Sepsis [RC] Q15MX2 Care 12/07/19 08:47 Active CULTURE BLOOD [BC] Urgent Lab 12/07/19 09:00 Received CULTURE BLOOD [BC] Urgent Lab 12/07/19 09:05 Received Lactated Ringers [Ringers, Lactated] 1,000 ml Med 12/07/19 09:00 Active IV ASDIRECTED Piperacillin/Tazobactam/Dext [Zosyn in Dextrose Iso- Med 12/07/19 10:00 Active Osmotic] 4.5 gm Premix Bag 1 bag IV Q6H Sodium Chloride 0.9% [Saline Flush] Med 12/07/19 08:46 Active 10 ml FLUSH ASDIRECTED PRN Vancomycin Med 12/07/19 09:00 Active 1 gm IV .PHARMACY TO DOSE Blood Culture x2 Reflex Set [OM.PC] Urgent Oth 12/07/19 08:46 Ordered Saline Lock Insert [OM.PC] Stat Oth 12/07/19 08:46 Ordered Severe Sepsis Onset Time [OM.PC] Stat Oth 12/07/19 08:46 Ordered Medication Orders Lactated Ringer's (Ringers, Lactated) 1,000 mls @ 999 mls/hr IV ASDIRECTED LUDA Last Admin: 12/07/19 09:11 Dose: 999 mls/hr Documented by: PREILOR Piperacillin/Tazobactam/ (Dextrose 4.5 gm/ Premix) 100 mls @ 100 mls/hr IV Q6H LUDA Last Admin: 12/07/19 09:29 Dose: 100 mls/hr Documented by: PREILOR Sodium Chloride (Saline Flush) 10 ml FLUSH ASDIRECTED PRN PRN Reason: Keep Vein Open Last Admin: 12/07/19 09:46 Dose: 10 ml Documented by: PREILOR Vancomycin HCl (Vancomycin) 1 gm IV .PHARMACY TO DOSE [facility] Labs: Laboratory Tests 12/07/19 12/07/19 12/07/19 Range/Units 08:46 09:00 09:00 WBC 12.6 H (4.5-11.0) K/uL RBC 5.83 (4.30-5.90) M/uL Hgb 15.4 H (12.0-15.0) g/dL Hct 46.1 (40.0-54.0) % MCV 79 L (80-98) fL MCH 26 L (27-31) pg MCHC 33 (32-36) % Plt Count 298 (150-400) K/uL Neut % (Auto) 70 H (36-66) % Lymph % (Auto) 18 L (24-44) % [place] % (Auto) 9 H (2-6) % Eos % (Auto) 3 (2-4) % Baso % (Auto) 0 (0-1) % ESR (0-20) mm/hr Sodium (140-148) mmol/L Potassium (3.6-5.2) mmol/L Chloride (100-108) mmol/L Carbon Dioxide (21-32) mmol/L Anion Gap (5.0-14.0) mmol/L BUN (7-18) mg/dL Creatinine (0.8-1.3) mg/dL Est Cr Clr Drug Dosing mL/min Estimated GFR (MDRD) (>60) Glucose (74-106) mg/dL Lactic Acid 0.8 (0.4-2.0) mmol/L Uric Acid (3.5-7.2) mg/dL Calcium (8.5-10.1) mg/dL Total Bilirubin (0.2-1.0) mg/dL AST (15-37) U/L ALT (12-78) U/L Alkaline Phosphatase (46-116) U/L C-Reactive Protein 3.39 H (0.0-0.3) mg/dL Total Protein (6.4-8.2) g/dL Albumin (3.4-5.0) g/dL Globulin (2.3-3.5) g/dL Albumin/Globulin Ratio (1.2-2.2) Procalcitonin ng/mL 12/07/19 12/07/19 12/07/19 Range/Units 09:00 09:11 09:11 WBC (4.5-11.0) K/uL RBC (4.30-5.90) M/uL Hgb (12.0-15.0) g/dL Hct (40.0-54.0) % MCV (80-98) fL MCH (27-31) pg MCHC (32-36) % Plt Count (150-400) K/uL Neut % (Auto) (36-66) % Lymph % (Auto) (24-44) % [place] % (Auto) (2-6) % Eos % (Auto) (2-4) % Baso % (Auto) (0-1) % ESR 22 H (0-20) mm/hr Sodium 140 (140-148) mmol/L Potassium 4.0 (3.6-5.2) mmol/L Chloride 103 (100-108) mmol/L Carbon Dioxide 27 (21-32) mmol/L Anion Gap 10.1 (5.0-14.0) mmol/L BUN 10 (7-18) mg/dL Creatinine 0.9 (0.8-1.3) mg/dL Est Cr Clr Drug Dosing 123.35 mL/min Estimated GFR (MDRD) > 60 (>60) Glucose 104 (74-106) mg/dL Lactic Acid (0.4-2.0) mmol/L Uric Acid (3.5-7.2) mg/dL Calcium 9.2 (8.5-10.1) mg/dL Total Bilirubin 0.4 (0.2-1.0) mg/dL AST 19 (15-37) U/L ALT 21 (12-78) U/L Alkaline Phosphatase 94 (46-116) U/L C-Reactive Protein (0.0-0.3) mg/dL Total Protein 7.9 (6.4-8.2) g/dL Albumin 3.9 (3.4-5.0) g/dL Globulin 4.0 H (2.3-3.5) g/dL Albumin/Globulin Ratio 1.0 L (1.2-2.2) Procalcitonin < 0.05 ng/mL 12/07/19 Range/Units 10:39 WBC (4.5-11.0) K/uL RBC (4.30-5.90) M/uL Hgb (12.0-15.0) g/dL Hct (40.0-54.0) % MCV (80-98) fL MCH (27-31) pg MCHC (32-36) % Plt Count (150-400) K/uL Neut % (Auto) (36-66) % Lymph % (Auto) (24-44) % [place] % (Auto) (2-6) % Eos % (Auto) (2-4) % Baso % (Auto) (0-1) % ESR (0-20) mm/hr Sodium (140-148) mmol/L Potassium (3.6-5.2) mmol/L Chloride (100-108) mmol/L Carbon Dioxide (21-32) mmol/L Anion Gap (5.0-14.0) mmol/L BUN (7-18) mg/dL Creatinine (0.8-1.3) mg/dL Est Cr Clr Drug Dosing mL/min Estimated GFR (MDRD) (>60) Glucose (74-106) mg/dL Lactic Acid (0.4-2.0) mmol/L Uric Acid 5.8 (3.5-7.2) mg/dL Calcium (8.5-10.1) mg/dL Total Bilirubin (0.2-1.0) mg/dL AST (15-37) U/L ALT (12-78) U/L Alkaline Phosphatase (46-116) U/L C-Reactive Protein (0.0-0.3) mg/dL Total Protein (6.4-8.2) g/dL Albumin (3.4-5.0) g/dL Globulin (2.3-3.5) g/dL Albumin/Globulin Ratio (1.2-2.2) Procalcitonin ng/mL Meds: Medications Generic Name Dose Route Start Last Admin Trade Name Freq PRN Reason Stop Dose Admin Lactated Ringer's 1,000 mls @ 999 mls/hr 12/07/19 09:00 12/07/19 09:11 Ringers, Lactated IV 999 mls/hr ASDIRECTED LUDA Administration Piperacillin/Tazobactam/ 100 mls @ 100 mls/hr 12/07/19 10:00 12/07/19 09:29 Dextrose 4.5 gm/ Premix IV 100 mls/hr Q6H LUDA Administration Sodium Chloride 10 ml 12/07/19 08:46 12/07/19 09:46 Saline Flush FLUSH 10 ml ASDIRECTED PRN Administration Keep Vein Open Vancomycin HCl 1 gm 12/07/19 09:00 Vancomycin IV .PHARMACY TO DOSE [facility] Discontinued Medications Generic Name Dose Route Start Last Admin Trade Name Freq PRN Reason Stop Dose Admin Fentanyl 50 mcg 12/07/19 08:50 12/07/19 09:13 Sublimaze IVPUSH 12/07/19 08:51 50 mcg ONETIME ONE Administration Piperacillin Sod/Tazobactam 100 mls @ 100 mls/hr 12/07/19 09:00 Sod 4.5 gm/ Sodium Chloride IV Q6H LUDA Vancomycin HCl 1.5 gm/ Sodium 250 mls @ 250 mls/hr 12/07/19 09:10 12/07/19 09:24 Chloride IV 12/07/19 10:09 250 mls/hr ONETIME ONE Administration Lorazepam 1 mg 12/07/19 08:50 12/07/19 09:14 Ativan IVPUSH 12/07/19 08:51 1 mg ONETIME ONE Administration Ondansetron HCl 4 mg 12/07/19 08:50 12/07/19 09:13 Zofran IVPUSH 12/07/19 08:51 4 mg ONETIME ONE Administration Departure - Departure Time of Disposition: 11:02 Disposition: Admitted As Inpatient 66 Condition: Fair Clinical Impression: Cellulitis of left lower extremity - Discharge Information Referrals: PCP,None [Primary Care Provider] - Forms: ED Department Discharge Sepsis Event Note (ED) - Evaluation Sepsis Screening Result: No Definite Risk - Focused Exam Vital Signs: Vital Signs Temp Pulse Resp BP Pulse Ox 12/07/19 09:35 90 16 129/72 99 12/07/19 08:21 99.7 F 90 18 139/100 H 98 12/07/19 08:12 99.7 F 90 18 139/100 H 98 - My Orders Last 24 Hours: My Active Orders 12/07/19 08:46 Sodium Chloride 0.9% [Saline Flush] 10 ml FLUSH ASDIRECTED PRN Blood Culture x2 Reflex Set [OM.PC] Urgent Saline Lock Insert [OM.PC] Stat Severe Sepsis Onset Time [OM.PC] Stat 12/07/19 08:47 Blood Pressure Mgt: Sepsis [RC] Q15MX2 12/07/19 09:00 CULTURE BLOOD [BC] Urgent Lactated Ringers [Ringers, Lactated] 1,000 ml IV ASDIRECTED Vancomycin 1 gm IV .PHARMACY TO DOSE 12/07/19 09:05 CULTURE BLOOD [BC] Urgent 12/07/19 10:00 Piperacillin/Tazobactam/Dext [Zosyn in Dextrose Iso-Osmotic] 4.5 gm Premix Bag 1 bag IV Q6H - Assessment/Plan Last 24 Hours: My Active Orders 12/07/19 08:46 Sodium Chloride 0.9% [Saline Flush] 10 ml FLUSH ASDIRECTED PRN Blood Culture x2 Reflex Set [OM.PC] Urgent Saline Lock Insert [OM.PC] Stat Severe Sepsis Onset Time [OM.PC] Stat 12/07/19 08:47 Blood Pressure Mgt: Sepsis [RC] Q15MX2 12/07/19 09:00 CULTURE BLOOD [BC] Urgent Lactated Ringers [Ringers, Lactated] 1,000 ml IV ASDIRECTED Vancomycin 1 gm IV .PHARMACY TO DOSE 12/07/19 09:05 CULTURE BLOOD [BC] Urgent 12/07/19 10:00 Piperacillin/Tazobactam/Dext [Zosyn in Dextrose Iso-Osmotic] 4.5 gm Premix Bag 1 bag IV Q6H Plan: Assessment Acuity = acute Site and laterality = cellulitis left lower extremity Etiology = probable bacterial cause Manifestations = none Location of injury = Home Lab values = WBC elevated 12.6 consistent leukocytosis, lactic acid normal 0.8 CRP slightly elevated 3.39 sed rate slightly elevated at 22 procalcitonin is negative at 0.05, official read from radiology from the reveals no fracture no sign of infection in the joint, joint aspiration done on the reveals no growth initial Gram stain reveals rare gram-positive cocci Plan Call discussed case with hospitalist on-call at 1045 he kindly agreed to come and evaluate the patient emergency department for admission, blood cultures are pending thus far 1 g Rocephin 1 dose of Zosyn provided without complications 50 mcg of fentanyl and 1 mg Ativan also provided This note was dictated using [employer] voice recognition software please call with any questions on syntax or grammar.
[2019-12-07] MEDS ORDERED: Piperacillin/Tazobactam/Dext 4.5 GM in Premix Bag 1 BAG IV SCH (10:00)
--- NOTE | 2019-12-07 11:23 | PCM.HP.2 ---
H&P History of Present Illness - General Date of Service: 12/07/19 Admit Problem/Dx: Admission Diagnosis/Problem Admission Diagnosis/Problem Cellulitis Source of Information: Patient, Old Records, Provider, RN Notes Reviewed History Limitations: Reports: No Limitations - History of Present Illness Initial Comments - Free Text/Narative: Mr. Go is a 39-year-old gentleman who was admitted through the emergency department with cellulitis and possible septic arthritis of the left ankle. Approximately 4 days ago he stepped off the curb and noted some pain in the ankle but denies any injury with abrasions or skin penetration. He was seen in the emergency department 2 days ago, the joint was aspirated. Gram stain showed a few gram-positive cocci, cultures are negative after 1 day. He left the emergency department AGAINST MEDICAL ADVICE but returns today because of ongoing swelling and fevers. He does have a modest elevation in white blood cell count and CRP. Blood cultures have been obtained in the emergency department and he is started on empiric IV antibiotic therapy with vancomycin and Zosyn. Left Ankle Pain Score (Numeric/FACES): 10 - Related Data Allergies/Adverse Reactions: Allergies Allergy/AdvReac Type Severity Reaction Status Date / Time lithium [[place]] Allergy Liver Verified 12/07/19 08:24 Problems Penicillins Allergy Cannot Verified 12/07/19 08:24 Remember aspirin AdvReac Bleeding Verified 12/07/19 08:24 divalproex sodium AdvReac Liver Verified 12/07/19 08:24 [From Depakote] Problems quetiapine fumarate AdvReac Liver Verified 12/07/19 08:24 [From Seroquel] Problems Home Medications: Home Meds ARIPiprazole [Abilify Maintena] 400 mg IM Q30D 12/05/19 [History] Cyanocobalamin (Vitamin B12) [Cyanocobalamin] 30,000 mcg .XX Q30D 12/05/19 [History] Cyclobenzaprine [Flexeril] 10 mg PO TID 12/05/19 [History] Gabapentin [Neurontin] 1 tab PO BEDTIME 12/05/19 [History] Past Medical History HEENT History: Reports: Allergic Rhinitis Cardiovascular History: Reports: None Respiratory History: Reports: None Gastrointestinal History: Reports: Gastritis, GERD Genitourinary History: Reports: None Musculoskeletal History: Reports: Back Pain, Chronic, Osteoarthritis, Other (See Below) Other Musculoskeletal History: Recent back/neck sork comp claim from 01/02/16 Neurological History: Reports: Concussion, Head Trauma Other Neuro History: 2009 head injury Psychiatric History: Reports: Bipolar, Mood Swings, Psych Hospitalization(s), PTSD, Suicide Attempt, Suicidal Ideation Other Psychiatric History: Yeny Munguia in 2012 Endocrine/Metabolic History: Reports: Vitamin D Deficiency Hematologic History: Reports: B12 Deficiency Immunologic History: Reports: None Oncologic (Cancer) History: Reports: None Dermatologic History: Reports: None - Infectious Disease History Infectious Disease History: Reports: None - Past Surgical History Head Surgeries/Procedures: Reports: None HEENT Surgical History: Reports: Eye Surgery Cardiovascular Surgical History: Reports: None Respiratory Surgical History: Reports: None GI Surgical History: Reports: Bariatric Procedure, Cholecystectomy, EGD, Esophageal Dilatation, Saji Fundoplication, Other (See Below) Other GI Surgeries/Procedures: gastrectomy 12/11/16 Male Surgical History: Reports: None Endocrine Surgical History: Reports: None Neurological Surgical History: Reports: None Musculoskeletal Surgical History: Reports: Arthroscopic Knee Oncologic Surgical History: Reports: None Dermatological Surgical History: Reports: None Social & Family History - Family History Family Medical History: Noncontributory Psychiatric: Reports: Other (See Below) Other Psychiatric Family History: sisters have mental illness Endocrine/Metabolic: Reports: Diabetes, type II Other Endocrine/Metabolic Family History: mother had diabetes - Tobacco Use Smoking Status *Q: Current Every Day Smoker Years of Tobacco use: 16 Packs/Tins Daily: 0.5 - Caffeine Use Caffeine Use: Reports: Soda - Recreational Drug Use Recreational Drug Use: No H&P Review of Systems - Review of Systems: Review Of Systems: See Below General: Reports: Fever, Chills, Malaise, Weakness HEENT: Reports: No Symptoms Pulmonary: Reports: No Symptoms Cardiovascular: Reports: No Symptoms Gastrointestinal: Reports: No Symptoms Genitourinary: Reports: No Symptoms Musculoskeletal: Reports: Other (Pain and swelling left ankle) Skin: Reports: Other (Erythema left ankle) Psychiatric: Reports: No Symptoms Neurological: Reports: No Symptoms Hematologic/Lymphatic: Reports: No Symptoms Immunologic: Reports: No Symptoms Exam - Exam Exam: See Below - Vital Signs Vital Signs: Last Vital Signs Temp 99.7 F 12/07/19 08:21 Pulse 90 12/07/19 09:35 Resp 16 12/07/19 09:35 BP 129/72 12/07/19 09:35 Pulse Ox 99 12/07/19 09:35 Weight: 198 lb - Exam General: Alert, Oriented, Cooperative, Mild Distress HEENT: Conjunctiva Clear, Hearing Intact, Mucosa Moist & [place], Normal Nasal Septum, Posterior Pharynx Clear, Pupils Equal Neck: Supple, Trachea Midline, +2 Carotid Pulse wo Bruit Lungs: Clear to Auscultation, Normal Respiratory Effort Cardiovascular: Regular Rate, Regular Rhythm, Normal S1, Normal S2. No: Systolic Murmur, Diastolic Murmur GI/Abdominal Exam: Soft, Non-Tender, No Organomegaly, No Distention Extremities: Other (Erythema and swelling left ankle) Skin: Warm, Dry Neurological: Cranial Nerves Intact, Strength Equal Bilateral, Normal Speech, Normal Tone, Sensation Intact. No: Focal Deficit Neuro Extensive - Mental Status: Alert, Oriented x3, Normal Mood/Affect, Normal Cognition, Memory Intact - Patient Data Lab Results Last 24 hrs: Laboratory Results - last 24 hr 12/07/19 12/07/19 12/07/19 Range/Units 08:46 09:00 09:00 WBC 12.6 H (4.5-11.0) K/uL RBC 5.83 (4.30-5.90) M/uL Hgb 15.4 H (12.0-15.0) g/dL Hct 46.1 (40.0-54.0) % MCV 79 L (80-98) fL MCH 26 L (27-31) pg MCHC 33 (32-36) % Plt Count 298 (150-400) K/uL Neut % (Auto) 70 H (36-66) % Lymph % (Auto) 18 L (24-44) % Harrison % (Auto) 9 H (2-6) % Eos % (Auto) 3 (2-4) % Baso % (Auto) 0 (0-1) % ESR (0-20) mm/hr Sodium (140-148) mmol/L Potassium (3.6-5.2) mmol/L Chloride (100-108) mmol/L Carbon Dioxide (21-32) mmol/L Anion Gap (5.0-14.0) mmol/L BUN (7-18) mg/dL Creatinine (0.8-1.3) mg/dL Est Cr Clr Drug Dosing mL/min Estimated GFR (MDRD) (>60) Glucose (74-106) mg/dL Lactic Acid 0.8 (0.4-2.0) mmol/L Uric Acid (3.5-7.2) mg/dL Calcium (8.5-10.1) mg/dL Total Bilirubin (0.2-1.0) mg/dL AST (15-37) U/L ALT (12-78) U/L Alkaline Phosphatase (46-116) U/L C-Reactive Protein 3.39 H (0.0-0.3) mg/dL Total Protein (6.4-8.2) g/dL Albumin (3.4-5.0) g/dL Globulin (2.3-3.5) g/dL Albumin/Globulin Ratio (1.2-2.2) Procalcitonin ng/mL 12/07/19 12/07/19 12/07/19 Range/Units 09:00 09:11 09:11 WBC (4.5-11.0) K/uL RBC (4.30-5.90) M/uL Hgb (12.0-15.0) g/dL Hct (40.0-54.0) % MCV (80-98) fL MCH (27-31) pg MCHC (32-36) % Plt Count (150-400) K/uL Neut % (Auto) (36-66) % Lymph % (Auto) (24-44) % Harrison % (Auto) (2-6) % Eos % (Auto) (2-4) % Baso % (Auto) (0-1) % ESR 22 H (0-20) mm/hr Sodium 140 (140-148) mmol/L Potassium 4.0 (3.6-5.2) mmol/L Chloride 103 (100-108) mmol/L Carbon Dioxide 27 (21-32) mmol/L Anion Gap 10.1 (5.0-14.0) mmol/L BUN 10 (7-18) mg/dL Creatinine 0.9 (0.8-1.3) mg/dL Est Cr Clr Drug Dosing 123.35 mL/min Estimated GFR (MDRD) > 60 (>60) Glucose 104 (74-106) mg/dL Lactic Acid (0.4-2.0) mmol/L Uric Acid (3.5-7.2) mg/dL Calcium 9.2 (8.5-10.1) mg/dL Total Bilirubin 0.4 (0.2-1.0) mg/dL AST 19 (15-37) U/L ALT 21 (12-78) U/L Alkaline Phosphatase 94 (46-116) U/L C-Reactive Protein (0.0-0.3) mg/dL Total Protein 7.9 (6.4-8.2) g/dL Albumin 3.9 (3.4-5.0) g/dL Globulin 4.0 H (2.3-3.5) g/dL Albumin/Globulin Ratio 1.0 L (1.2-2.2) Procalcitonin < 0.05 ng/mL 12/07/19 Range/Units 10:39 WBC (4.5-11.0) K/uL RBC (4.30-5.90) M/uL Hgb (12.0-15.0) g/dL Hct (40.0-54.0) % MCV (80-98) fL MCH (27-31) pg MCHC (32-36) % Plt Count (150-400) K/uL Neut % (Auto) (36-66) % Lymph % (Auto) (24-44) % Harrison % (Auto) (2-6) % Eos % (Auto) (2-4) % Baso % (Auto) (0-1) % ESR (0-20) mm/hr Sodium (140-148) mmol/L Potassium (3.6-5.2) mmol/L Chloride (100-108) mmol/L Carbon Dioxide (21-32) mmol/L Anion Gap (5.0-14.0) mmol/L BUN (7-18) mg/dL Creatinine (0.8-1.3) mg/dL Est Cr Clr Drug Dosing mL/min Estimated GFR (MDRD) (>60) Glucose (74-106) mg/dL Lactic Acid (0.4-2.0) mmol/L Uric Acid 5.8 (3.5-7.2) mg/dL Calcium (8.5-10.1) mg/dL Total Bilirubin (0.2-1.0) mg/dL AST (15-37) U/L ALT (12-78) U/L Alkaline Phosphatase (46-116) U/L C-Reactive Protein (0.0-0.3) mg/dL Total Protein (6.4-8.2) g/dL Albumin (3.4-5.0) g/dL Globulin (2.3-3.5) g/dL Albumin/Globulin Ratio (1.2-2.2) Procalcitonin ng/mL Result Diagrams: 12/07/19 09:00 12/07/19 09:00 Sepsis Event Note - Evaluation Sepsis Screening Result: No Definite Risk - Focused Exam Vital Signs: Vital Signs Temp Pulse Resp BP Pulse Ox 12/07/19 09:35 90 16 129/72 99 12/07/19 08:21 99.7 F 90 18 139/100 H 98 12/07/19 08:12 99.7 F 90 18 139/100 H 98 Date Exam was Performed: 12/07/19 Time Exam was Performed: 12:36 *Q Meaningful Use (ADM) - VTE Risk Assess *Q Each Risk Factor Represents 1 Point: None, Obesity ( BMI > 25 kg/m2) Total Score 1 Point Risk Factors: 1 Each Risk Factor Represents 2 Points: None Total Score 2 Point Risk Factors: 0 Each Risk Factor Represents 3 Points: None Total Score 3 Point Risk Factors: 0 Each Risk Factor Represents 5 Points: None Total Score 5 Point Risk Factors: 0 Venous Thromboembolism Risk Factor Score *Q: 1 Problem List Initiated/Reviewed/Updated: Yes Orders Last 24hrs: Active Orders 24 hr Category Date Time Status Patient Status Manage Transfer [TRANSFER] Routine ADT 12/07/19 11:15 Ordered Blood Pressure Mgt: Sepsis [RC] [id number] Care 12/07/19 08:47 Active CULTURE BLOOD [BC] Urgent Lab 12/07/19 09:00 Received CULTURE BLOOD [BC] Urgent Lab 12/07/19 09:05 Received Lactated Ringers [Ringers, Lactated] 1,000 ml Med 12/07/19 09:00 Active IV ASDIRECTED Piperacillin/Tazobactam/Dext [Zosyn in Dextrose Iso- Med 12/07/19 10:00 Active Osmotic] 4.5 gm Premix Bag 1 bag IV Q6H Sodium Chloride 0.9% [Saline Flush] Med 12/07/19 08:46 Active 10 ml FLUSH ASDIRECTED PRN Vancomycin Med 12/07/19 09:00 Active 1 gm IV .PHARMACY TO DOSE Blood Culture x2 Reflex Set [OM.PC] Urgent Oth 12/07/19 08:46 Ordered Saline Lock Insert [OM.PC] Stat Ot 12/07/19 08:46 Ordered Severe Sepsis Onset Time [OM.PC] Stat Ot 12/07/19 08:46 Ordered Resuscitation Status Routine Resus Stat 12/07/19 11:17 Ordered Medication Orders Lactated Ringer's (Ringers, Lactated) 1,000 mls @ 999 mls/hr IV ASDIRECTED [facility] Last Admin: 12/07/19 09:11 Dose: 999 mls/hr Documented by: PREILOR Piperacillin/Tazobactam/ (Dextrose 4.5 gm/ Premix) 100 mls @ 100 mls/hr IV Q6H [facility] Last Admin: 12/07/19 09:29 Dose: 100 mls/hr Documented by: PREILOR Sodium Chloride (Saline Flush) 10 ml FLUSH ASDIRECTED PRN PRN Reason: Keep Vein Open Last Admin: 12/07/19 09:46 Dose: 10 ml Documented by: PREILOR Vancomycin HCl (Vancomycin) 1 gm IV .PHARMACY TO DOSE LUDA Assessment/Plan Comment:: ASSESSMENT AND PLAN CELLULITIS AND POSSIBLE SEPTIC ARTHRITIS-swelling and erythema over the last 3 to 4 days. Joint aspiration 2 days ago showing no growth. -Blood culture pending -IV vancomycin and Zosyn pending culture results -Consult Dr. Mendez for orthopedic opinion MAINTENANCE ISSUES -DVT prophylaxis; ambulation -GI prophylaxis; not indicated -Vasquez catheter; not indicated -Nutrition; regular diet -Nicotine dependence; not required CODE STATUS-FULL CODE ADMISSION STATUS-patient will be admitted to inpatient status, expect at least a 2 night hospital stay for evaluation and management of problems as outlined above. At the time of this admission I do not reasonably expected evaluation and management of this problem will require more than a 96 hour hospital stay. DISPOSITION-anticipate discharge to home after the hospital stay. PRIMARY CARE PROVIDER- - Mortality Measure Prognosis:: Good
[2019-12-07] MEDS ORDERED: Cyclobenzaprine 10 MG Tab PO PRN (13:05)
[2019-12-07] MEDS ORDERED: Polyethylene Glycol 3350 Powder 17 GM Packet PO PRN (13:05)
[2019-12-07] MEDS ORDERED: Ondansetron 4 MG/2 ML SDV IV PRN (13:05)
[2019-12-07] MEDS ORDERED: Acetaminophen 325 MG Tab PO PRN (13:05)
[2019-12-07] MEDS ORDERED: oxyCODONE 5 MG Tab PO PRN (13:05)
[2019-12-07] MEDS: Piperacillin/Tazobactam/Dext 3.375 GM in Premix Bag 1 BAG IV SCH ×2 (16:01→21:45)
[2019-12-07] MEDS ORDERED: Vancomycin 1.3 GM in Sodium Chloride 0.9% 250 ML IV SCH (18:00)
[2019-12-07 18:43] VITALS: BP 130/65; PULSE 93
[2019-12-07] MEDS ORDERED: Gabapentin 300 MG Cap PO SCH (21:00)
--- NOTE | 2019-12-07 21:16 | PCM.SN.2 ---
- Free Text/Narrative Note: time: 21:10 call from [address] [place] [address]. Mr. Go is requesting AMA, will finish his evening dose of antibiotics and will leave. A: ANDRSE P: will order Septra DS one po bid x 10 days. advised to follow up in Primary Care for recheck.
--- NOTE | 2019-12-08 09:26 | PCM.DCSUM1 ---
Discharge Summary - Hospital Course Brief History: Mr. Go is a 39-year-old gentleman who was admitted through the emergency department for management of cellulitis and possible septic arthritis of the left ankle. - Discharge Data Discharge Date: 12/07/19 Discharge Disposition: Against Medical Advice 07 Condition: Poor - Referral to Home Health Primary Care Physician: PCP None - Discharge Diagnosis/Problem(s) (1) Cellulitis of left lower extremity SNOMED Code(s): 096761137 ICD Code: L03.116 - CELLULITIS OF LEFT LOWER LIMB Status: Acute (2) Bipolar disorder SNOMED Code(s): 14298779 ICD Code: F31.9 - BIPOLAR DISORDER, UNSPECIFIED Status: Chronic (3) Essential hypertension SNOMED Code(s): 12815923 ICD Code: I10 - ESSENTIAL (PRIMARY) HYPERTENSION Status: Chronic (4) Schizophrenia SNOMED Code(s): 50083122 ICD Code: F20.9 - SCHIZOPHRENIA, UNSPECIFIED Status: Chronic Priority: High - Patient Summary/Data Consults: Consultations 12/07/19 13:05 Consult to Physician [CONS] Routine Consulting Provider: Murali Mendez Courtreji Call Completed to Consulting Physician: Yes Reason for Consult: Please evaluate for septic joint left ankle Hospital Course: Mr. Go is a 39-year-old gentleman who was admitted through the emergency department with cellulitis and possible septic arthritis of the left ankle. Approximately 4 days ago he stepped off the curb and noted some pain in the ankle but denies any injury with abrasions or skin penetration. He was seen in the emergency department 2 days ago, the joint was aspirated. Gram stain showed a few gram-positive cocci, cultures are negative after 1 day. He left the emergency department AGAINST MEDICAL ADVICE but returns today because of ongoing swelling and fevers. He does have a modest elevation in white blood cell count and CRP. Blood cultures have been obtained in the emergency department and he is started on empiric IV antibiotic therapy with vancomycin and Zosyn. On admission antibiotic therapy with vancomycin and Zosyn was continued and he was given IV fluids for hydration as well as pain medication as needed. Orthopedic consult was requested but the patient left AGAINST MEDICAL ADVICE prior to being seen by Dr. Mendez. In the evening following admission he demanded discharge and did leave AGAINST MEDICAL ADVICE. He was given a prescription for Septra DS 1 p.o. twice daily x10 days and encouraged to follow-up with his primary care provider. - Patient Instructions Diet: Usual Diet as Tolerated Activity: As Tolerated - Discharge Plan *PRESCRIPTION DRUG MONITORING PROGRAM REVIEWED*: Not Applicable *COPY OF PRESCRIPTION DRUG MONITORING REPORT IN PATIENT AGATHA: Not Applicable Prescriptions/Med Rec: Sulfamethoxazole/Trimethoprim [Septra DS] 1 each PO BID #20 tab Home Medications: Home Meds ARIPiprazole [Abilify Maintena] 400 mg IM Q30D 12/05/19 [History] Cyanocobalamin (Vitamin B12) [Vitamin B12] 30,000 mcg .XX Q30D 12/05/19 [History] Cyclobenzaprine [Flexeril] 10 mg PO TID 12/05/19 [History] Gabapentin [Neurontin] 1 tab PO BEDTIME 12/05/19 [History] Sulfamethoxazole/Trimethoprim [Septra DS] 1 each PO BID #20 tab 12/08/19 [Rx] - Discharge Summary/Plan Comment DC Time >30 min.: No - Patient Data Vitals - Most Recent: Last Vital Signs Temp 96.9 F 12/07/19 18:41 Pulse 93 12/07/19 18:41 Resp 16 12/07/19 18:41 BP 130/65 12/07/19 18:41 Pulse Ox 100 12/07/19 18:41 Weight - Most Recent: 199 lb I&O - Last 24 hours: Intake & Output 12/07/19 12/08/19 12/08/19 22:59 06:59 14:59 Intake Total 3343 Balance 3343 Lab Results - Last 24 hrs: Laboratory Results - last 24 hr 12/07/19 12/07/19 12/07/19 Range/Units 08:46 09:00 09:00 WBC 12.6 H (4.5-11.0) K/uL RBC 5.83 (4.30-5.90) M/uL Hgb 15.4 H (12.0-15.0) g/dL Hct 46.1 (40.0-54.0) % MCV 79 L (80-98) fL MCH 26 L (27-31) pg MCHC 33 (32-36) % Plt Count 298 (150-400) K/uL Neut % (Auto) 70 H (36-66) % Lymph % (Auto) 18 L (24-44) % [place]isher % (Auto) 9 H (2-6) % Eos % (Auto) 3 (2-4) % Baso % (Auto) 0 (0-1) % ESR (0-20) mm/hr Sodium (140-148) mmol/L Potassium (3.6-5.2) mmol/L Chloride (100-108) mmol/L Carbon Dioxide (21-32) mmol/L Anion Gap (5.0-14.0) mmol/L BUN (7-18) mg/dL Creatinine (0.8-1.3) mg/dL Est Cr Clr Drug Dosing mL/min Estimated GFR (MDRD) (>60) Glucose (74-106) mg/dL Lactic Acid 0.8 (0.4-2.0) mmol/L Uric Acid (3.5-7.2) mg/dL Calcium (8.5-10.1) mg/dL Total Bilirubin (0.2-1.0) mg/dL AST (15-37) U/L ALT (12-78) U/L Alkaline Phosphatase (46-116) U/L C-Reactive Protein 3.39 H (0.0-0.3) mg/dL Total Protein (6.4-8.2) g/dL Albumin (3.4-5.0) g/dL Globulin (2.3-3.5) g/dL Albumin/Globulin Ratio (1.2-2.2) Procalcitonin ng/mL 12/07/19 12/07/19 12/07/19 Range/Units 09:00 09:11 09:11 WBC (4.5-11.0) K/uL RBC (4.30-5.90) M/uL Hgb (12.0-15.0) g/dL Hct (40.0-54.0) % MCV (80-98) fL MCH (27-31) pg MCHC (32-36) % Plt Count (150-400) K/uL Neut % (Auto) (36-66) % Lymph % (Auto) (24-44) % Swisher % (Auto) (2-6) % Eos % (Auto) (2-4) % Baso % (Auto) (0-1) % ESR 22 H (0-20) mm/hr Sodium 140 (140-148) mmol/L Potassium 4.0 (3.6-5.2) mmol/L Chloride 103 (100-108) mmol/L Carbon Dioxide 27 (21-32) mmol/L Anion Gap 10.1 (5.0-14.0) mmol/L BUN 10 (7-18) mg/dL Creatinine 0.9 (0.8-1.3) mg/dL Est Cr Clr Drug Dosing 123.35 mL/min Estimated GFR (MDRD) > 60 (>60) Glucose 104 (74-106) mg/dL Lactic Acid (0.4-2.0) mmol/L Uric Acid (3.5-7.2) mg/dL Calcium 9.2 (8.5-10.1) mg/dL Total Bilirubin 0.4 (0.2-1.0) mg/dL AST 19 (15-37) U/L ALT 21 (12-78) U/L Alkaline Phosphatase 94 (46-116) U/L C-Reactive Protein (0.0-0.3) mg/dL Total Protein 7.9 (6.4-8.2) g/dL Albumin 3.9 (3.4-5.0) g/dL Globulin 4.0 H (2.3-3.5) g/dL Albumin/Globulin Ratio 1.0 L (1.2-2.2) Procalcitonin < 0.05 ng/mL 12/07/19 Range/Units 10:39 WBC (4.5-11.0) K/uL RBC (4.30-5.90) M/uL Hgb (12.0-15.0) g/dL Hct (40.0-54.0) % MCV (80-98) fL MCH (27-31) pg MCHC (32-36) % Plt Count (150-400) K/uL Neut % (Auto) (36-66) % Lymph % (Auto) (24-44) % Swisher % (Auto) (2-6) % Eos % (Auto) (2-4) % Baso % (Auto) (0-1) % ESR (0-20) mm/hr Sodium (140-148) mmol/L Potassium (3.6-5.2) mmol/L Chloride (100-108) mmol/L Carbon Dioxide (21-32) mmol/L Anion Gap (5.0-14.0) mmol/L BUN (7-18) mg/dL Creatinine (0.8-1.3) mg/dL Est Cr Clr Drug Dosing mL/min Estimated GFR (MDRD) (>60) Glucose (74-106) mg/dL Lactic Acid (0.4-2.0) mmol/L Uric Acid 5.8 (3.5-7.2) mg/dL Calcium (8.5-10.1) mg/dL Total Bilirubin (0.2-1.0) mg/dL AST (15-37) U/L ALT (12-78) U/L Alkaline Phosphatase (46-116) U/L C-Reactive Protein (0.0-0.3) mg/dL Total Protein (6.4-8.2) g/dL Albumin (3.4-5.0) g/dL Globulin (2.3-3.5) g/dL Albumin/Globulin Ratio (1.2-2.2) Procalcitonin ng/mL QAMAR Results - Last 24 hrs: Microbiology 12/07/19 09:05 Aerobic Blood Culture - Preliminary Blood - Venous - Lab Draw NO GROWTH AFTER 1 DAY Anaerobic Blood Culture - Preliminary NO GROWTH AFTER 1 DAY 12/07/19 09:00 Aerobic Blood Culture - Preliminary Blood - Venous NO GROWTH AFTER 1 DAY Anaerobic Blood Culture - Preliminary NO GROWTH AFTER 1 DAY Med Orders - Current: Current Medications Discontinued Medications Acetaminophen (Tylenol) 650 mg PO Q4H PRN PRN Reason: Pain (Mild 1-3)/fever Cyclobenzaprine HCl (Flexeril) 10 mg PO TID PRN PRN Reason: Muscle Spasm Fentanyl (Sublimaze) 50 mcg IVPUSH ONETIME ONE Stop: 12/07/19 08:51 Last Admin: 12/07/19 09:13 Dose: 50 mcg Documented by: Gabapentin (Neurontin) 300 mg PO BEDTIME [facility] Last Admin: 12/07/19 20:03 Dose: 300 mg Documented by: Lactated Ringer's (Ringers, Lactated) 1,000 mls @ 999 mls/hr IV ASDIRECTED [facility] Last Admin: 12/07/19 09:11 Dose: 999 mls/hr Documented by: Piperacillin Sod/Tazobactam (Sod 4.5 gm/ Sodium Chloride) 100 mls @ 100 mls/hr IV Q6H [facility] Last Admin: 12/07/19 13:06 Dose: Not Given Documented by: Vancomycin HCl 1.5 gm/ Sodium (Chloride) 250 mls @ 250 mls/hr IV ONETIME ONE Stop: 12/07/19 10:09 Last Admin: 12/07/19 09:24 Dose: 250 mls/hr Documented by: Piperacillin/Tazobactam/ (Dextrose 4.5 gm/ Premix) 100 mls @ 100 mls/hr IV Q6H [facility] Last Admin: 12/07/19 09:29 Dose: 100 mls/hr Documented by: Lactated Ringer's (Ringers, Lactated) 1,000 mls @ 100 mls/hr IV ASDIRECTED [facility] Last Admin: 12/07/19 13:21 Dose: 100 mls/hr Documented by: Piperacillin/Tazobactam/ (Dextrose 3.375 gm/ Premix) 50 mls @ 100 mls/hr IV Q6H [facility] Last Admin: 12/07/19 21:45 Dose: 100 mls/hr Documented by: Vancomycin HCl 1.3 gm/ Sodium (Chloride) 250 mls @ 165 mls/hr IV Q8H [facility] Last Admin: 12/07/19 17:55 Dose: 165 mls/hr Documented by: Lorazepam (Ativan) 1 mg IVPUSH ONETIME ONE Stop: 12/07/19 08:51 Last Admin: 12/07/19 09:14 Dose: 1 mg Documented by: Ondansetron HCl (Zofran) 4 mg IVPUSH ONETIME ONE Stop: 12/07/19 08:51 Last Admin: 12/07/19 09:13 Dose: 4 mg Documented by: Ondansetron HCl (Zofran) 4 mg IV Q4H PRN PRN Reason: Nausea/Vomiting Oxycodone HCl (Oxycodone) 5 mg PO Q4H PRN PRN Reason: Pain (moderate 4-6) Polyethylene Glycol (Miralax) 17 gm PO DAILY PRN PRN Reason: Constipation Sodium Chloride (Saline Flush) 10 ml FLUSH ASDIRECTED PRN PRN Reason: Keep Vein Open Last Admin: 12/07/19 09:46 Dose: 10 ml Documented by: Sodium Chloride (Saline Flush) 10 ml FLUSH ASDIRECTED PRN PRN Reason: Keep Vein Open Vancomycin HCl (Vancomycin) 1 gm IV .PHARMACY TO DOSE LUDA Vancomycin HCl (Vancomycin) 1 gm IV .PHARMACY TO DOSE LUDA Stop: 12/07/19 18:00 - Exam General: Reports: Other (Left AMA)
== END 2019-12-07 21:45 | disposition left against medical advice (07) | DRG 549 ==
LOC: JP.ED 08:09 → JP.MS 11:15
PROVIDERS: ADMIT Hospitalist; ATTEND Hospitalist
DX: M00.9 Pyogenic arthritis, unspecified (principal); L03.116 Cellulitis of left lower limb; F31.9 Bipolar disorder, unspecified; F20.9 Schizophrenia, unspecified; I10 Essential (primary) hypertension; K21.9 Gastro-esophageal reflux disease without esophagitis; G89.29 Other chronic pain; M54.9 Dorsalgia, unspecified; E53.8 Deficiency of other specified B group vitamins; M19.90 Unspecified osteoarthritis, unspecified site; F43.10 Post-traumatic stress disorder, unspecified; Z90.3 Acquired absence of stomach [part of]; F17.200 Nicotine dependence, unspecified, uncomplicated; E55.9 Vitamin D deficiency, unspecified; F17.210 Nicotine dependence, cigarettes, uncomplicated; Z79.899 Other long term (current) drug therapy; Z98.84 Bariatric surgery status; Z90.49 Acquired absence of other specified parts of digestive tract; Z88.2 Allergy status to sulfonamides; Z88.8 Allergy status to other drugs, medicaments and biological substances; Z88.6 Allergy status to analgesic agent; Z88.0 Allergy status to penicillin
CPT/HCPCS: 36415; 80053; 83605; 84145; 84550; 85025; 85651; 86140; 87040 ×2; J2060; J2405; J2543; J3010; J3370; J7050; J7120; 96365; 96368; 96375; 99285-25; A9270-GY

== ENCOUNTER 2020-04-25 05:32 | Day surgery (SDC) | payer MEDICARE, MEDICAID ==
[2020-04-25] MEDS ORDERED: Lactated Ringers 1,000 ML IV ONE (06:00)
[2020-04-25] MEDS ORDERED: MVI, Adult with Vitamin K 10 ML, Thiamine 200 MG, Zinc/Copper/Manganese/Selenium 1 ML i... IV ONE ×4 (07:00)
[2020-04-25] MEDS ORDERED: Cyanocobalamin (Vitamin B12) 1,000 MCG/ML SDV IM ONE (07:00)
[2020-04-25] MEDS ORDERED: Glycopyrrolate 0.2 MG/ML 2 ML SDV IVPUSH ONE (07:00)
[2020-04-25] MEDS ORDERED: fentaNYL 100 MCG/2 ML SDV ONE (07:07)
[2020-04-25] MEDS ORDERED: Midazolam 1 MG/ML 2 ML SDV ONE (07:07)
[2020-04-25] MEDS ORDERED: Propofol 200 MG/20 ML SDV ONE (07:08)
[2020-04-25] MEDS ORDERED: Hydrocortisone Sodium Succinate 100 MG/2 ML SDV IV PRN (08:17)
[2020-04-25] MEDS ORDERED: diphenhydrAMINE 50 MG/ML SDV IV PRN (08:17)
[2020-04-25] MEDS ORDERED: Famotidine 20 MG/2 ML SDV IV PRN (08:17)
[2020-04-25] MEDS ORDERED: Sodium Chloride 0.9% 250 ML IV SCH (08:30)
[2020-04-25] MEDS ORDERED: Sodium Chloride 0.9% 1,000 ML IV SCH (08:45)
[2020-04-25] MEDS ORDERED: Iron Sucrose Complex 500 MG in Sodium Chloride 0.9% 250 ML IV ONE (09:00)
[2020-04-25 09:51] VITALS: BP 123/71; PULSE 77
--- NOTE | 2020-05-02 08:58 | OR ---
DATE OF PROCEDURE: 04/25/2020 SURGEON: Myles Haney MD PREOPERATIVE DIAGNOSIS: Epigastric discomfort. POSTOPERATIVE DIAGNOSES: Epigastric discomfort associated with normal upper gastrointestinal endoscopic examination, status post John-en-Y gastric bypass. OPERATIVE PROCEDURE: Upper gastrointestinal endoscopy. ANESTHESIA: IV sedation. INDICATION FOR PROCEDURE: A 39-year-old presenting with some ongoing sense of dysphagia and discomfort in the epigastric area. The plan is to proceed with an upper GI endoscopy with biopsies as indicated. Potential risks including bleeding and perforation were discussed, and the patient wishes to proceed. DETAILS OF PROCEDURE: The patient was taken to the operating room and placed in a left lateral decubitus position. IV sedation was administered after which the upper GI endoscope was passed orally through the length of the esophagus into the gastric pouch and from there through the gastrojejunostomy roughly 20 cm into the John limb. Overall, there were no abnormalities noted. There were no areas of mucosal inflammation or stricturing and no backup of bile or other signs of any partial bowel obstruction. The scope was then withdrawn. The procedure was then concluded. The plan will be to continue with the present medical management. Of note, his iron levels were quite low today with ferritin of 16 and percent saturation of 14. Given this, the patient will be given 510 mg of Feraheme today and scheduled for repeat dose in roughly 1 week. Otherwise, followup with Ivette Tripp PA-C would be in 1 month. Myles Haney MD /[id number]
== END 2020-04-25 09:52 | disposition home or self-care (01) ==
LOC: JP.SDS 05:32
PROVIDERS: ATTEND Surgery
DX: R10.13 Epigastric pain (principal); R13.10 Dysphagia, unspecified; I10 Essential (primary) hypertension; K90.9 Intestinal malabsorption, unspecified; Z87.19 Personal history of other diseases of the digestive system; Z98.84 Bariatric surgery status
CPT/HCPCS: 36415; 43235; 82728; 83550; 85025; J2250; J2704; J3010; J3411; J3420; J3490; J7030; J7120; Q0138

== ENCOUNTER 2021-12-01 20:42 | Emergency (ER) | payer MEDICARE, MEDICAID ==
[2021-12-01 21:21] VITALS: BP 124/72; PULSE 74
[2021-12-01] MEDS ORDERED: Acetaminophen/HYDROcodone 325-5 MG Tab PO ONE (22:01)
== END 2021-12-01 22:50 | disposition home or self-care (01) ==
LOC: JP.ED 20:42
DX: S20.212A Contusion of left front wall of thorax, initial encounter (principal); F17.210 Nicotine dependence, cigarettes, uncomplicated; Z91.048 Other nonmedicinal substance allergy status; Z88.0 Allergy status to penicillin; Z88.6 Allergy status to analgesic agent; Z88.8 Allergy status to other drugs, medicaments and biological substances; Z79.899 Other long term (current) drug therapy; Z90.49 Acquired absence of other specified parts of digestive tract; W01.0XXA Fall on same level from slipping, tripping and stumbling without subsequent striking against object, initial encounter
CPT/HCPCS: 71101; 99283; A9270

== ENCOUNTER 2021-12-11 08:43 | Emergency (ER) | payer MEDICARE, MEDICAID ==
[2021-12-11 09:13] VITALS: BP 128/81; PULSE 60
== END 2021-12-11 10:15 | disposition home or self-care (01) ==
LOC: JP.ED 08:43
DX: S20.212A Contusion of left front wall of thorax, initial encounter (principal); K21.9 Gastro-esophageal reflux disease without esophagitis; Z91.048 Other nonmedicinal substance allergy status; Z88.0 Allergy status to penicillin; Z88.8 Allergy status to other drugs, medicaments and biological substances
CPT/HCPCS: 71250; 71250-26; 99281; 99283

== ENCOUNTER 2021-12-13 10:02 | Emergency (ER) | payer MEDICARE, MEDICAID ==
[2021-12-13 10:56] VITALS: BP 123/77; PULSE 61
[2021-12-13] MEDS ORDERED: Ketorolac 30 MG/ML SDV IM ONE (10:59)
== END 2021-12-13 11:35 | disposition home or self-care (01) ==
LOC: JP.ED 10:02
DX: S20.212A Contusion of left front wall of thorax, initial encounter (principal); Z88.0 Allergy status to penicillin; Z88.8 Allergy status to other drugs, medicaments and biological substances; Z91.048 Other nonmedicinal substance allergy status; Z87.891 Personal history of nicotine dependence; X50.1XXA Overexertion from prolonged static or awkward postures, initial encounter
CPT/HCPCS: 96372; 99283; J1885; 99281

== ENCOUNTER 2023-09-15 13:44 | Emergency (ER) | payer MEDICAID, MEDICARE ==
[2023-09-15 14:41] VITALS: BP 130/83; PULSE 97
== END 2023-09-15 15:05 | disposition home or self-care (01) ==
LOC: JP.ED 13:44
DX: G89.29 Other chronic pain (principal); M54.50 Low back pain, unspecified; I10 Essential (primary) hypertension; K21.9 Gastro-esophageal reflux disease without esophagitis; F17.210 Nicotine dependence, cigarettes, uncomplicated; Z88.0 Allergy status to penicillin; Z91.048 Other nonmedicinal substance allergy status; Z88.6 Allergy status to analgesic agent; Z88.8 Allergy status to other drugs, medicaments and biological substances; Z79.899 Other long term (current) drug therapy; Z90.49 Acquired absence of other specified parts of digestive tract
CPT/HCPCS: 99283

== ENCOUNTER 2023-09-17 07:21 | Emergency (ER) | payer MEDICAID ==
[2023-09-17 08:18] VITALS: BP 141/88; PULSE 83
== END 2023-09-17 08:02 | disposition left against medical advice (07) ==
LOC: JP.ED 07:21
DX: Z53.21 Procedure and treatment not carried out due to patient leaving prior to being seen by health care provider (principal)

== ENCOUNTER 2023-09-24 15:45 | Emergency (ER) | payer MEDICAID ==
[2023-09-24] MEDS: LORazepam 2 MG/ML SDV IM ONE (17:25)
[2023-09-24] MEDS: Cyanocobalamin (Vitamin B12) 1,000 MCG/ML SDV IM ONE (17:25)
[2023-09-24 17:37] LABS: BASOPHILS ABSOLUTE AUTO 0.04 K/uL (0.00-0.10); BASOPHILS PERCENT AUTO 0.5 % (0.1-1.3); EOSINOPHILS PERCENT AUTO 2.3 % (0.0-5.4); HEMATOCRIT 47.3 % (38.4-49.7); HEMOGLOBIN 16.3 g/dL (12.9-16.9); IMMATURE GRAN ABSOLUTE AUTO 0.03 K/uL (0.00-0.23); IMMATURE GRAN PERCENT AUTO 0.3 % (0.0-0.7); LYMPHOCYTES ABSOLUTE AUTO 2.49 K/uL (0.8-3.3); LYMPHOCYTES PERCENT AUTO 28.8 % (11.4-47.7); MEAN CORPUSCULAR HEMOGLOBIN 27.9 pg (31.6-35.5); MEAN CORPUSCULAR HGB CONC 34.5 g/dL (31.6-35.5); MEAN CORPUSCULAR VOLUME 80.9 fL (81.4-99.0); MONOCYTES ABSOLUTE AUTO 0.75 K/uL (0.20-0.90); MONOCYTES PERCENT AUTO 8.7 % (3.3-12.6); NEUTROPHILS ABSOLUTE AUTO 5.15 K/uL (1.0-7.6); NEUTROPHILS PERCENT AUTO 59.4 % (40.0-78.1); PLATELET COUNT,PLT 318 K/uL (130-375); RED BLOOD CELL COUNT 5.85 M/uL (4.14-5.76); WHITE BLOOD CELL COUNT,WBC 8.7 K/uL (3.2-11.0)
[2023-09-24 17:44] LABS: AMPHETAMINES SCREEN, URINE NEGATIVE (NEGATIVE); BARBITURATE SCREEN,URINE NEGATIVE (NEGATIVE); BENZODIAZEPINES SCREEN,URINE NEGATIVE (NEGATIVE); METHADONE SCREEN, URINE NEGATIVE (NEGATIVE); METHAMPHETAMINES SCREEN, URINE NEGATIVE (NEGATIVE); OXYCODONE SCREEN,URINE NEGATIVE (NEGATIVE); PROPOXYPHENE SCREEN,URINE NEGATIVE (NEGATIVE); THC SCREEN,URINE 50 NG/ML NEGATIVE (NEGATIVE)
[2023-09-24 18:06] LABS: ALANINE AMINOTRANSFERASE,ALT 30 U/L (12-78); ALBUMIN 4.2 g/dL (3.4-5.0); ALKALINE PHOSPHATASE 81 U/L (46-116); ASPARTATE AMNIOTRANSFERASE,AST 23 U/L (15-37); BILIRUBIN TOTAL 0.5 mg/dL (0.2-1.0); BLOOD UREA NITROGEN,BUN 9 mg/dL (7-18); CALCIUM 9.3 mg/dL (8.5-10.1); CARBON DIOXIDE,CO2 28 mmol/L (21-32); CHLORIDE,CL 103 mmol/L (100-108); CREATININE 0.9 mg/dL (0.8-1.3); EST CRCL DRUG DOSING (CG) 115.04 mL/min; ESTIMATED GFR 110 mL/min (>60); GLUCOSE RANDOM 112 mg/dL (74-106); POTASSIUM,K 3.9 mmol/L (3.6-5.2); PROTEIN TOTAL,TP 8.6 g/dL (6.4-8.2); SODIUM,NA 139 mmol/L (140-148); TSH ULTRASENSITIVE 1.969 uIU/mL (0.358-3.740)
[2023-09-24 18:07] LABS: ANION GAP 11.9 mmol/L (5.0-14.0)
[2023-09-25] MEDS: LORazepam 2 MG/ML SDV ONE (06:03)
[2023-09-25] MEDS: Haloperidol Lactate 5 MG/ML SDV ONE (06:04)
[2023-09-25] MEDS: diphenhydrAMINE 50 MG/ML SDV ONE (06:04)
[2023-09-25 06:44] VITALS: BP 138/73; PULSE 76
[2023-09-25] MEDS: Acetaminophen 500 MG Tab PO ONE (08:51)
[2023-09-25] MEDS: Haloperidol Lactate 5 MG/ML SDV IM ONE (11:50)
[2023-09-25] MEDS: diphenhydrAMINE 50 MG/ML SDV IM ONE (11:50)
[2023-09-25] MEDS: LORazepam 2 MG/ML SDV IM ONE (11:50)
[2023-09-25] MEDS: Nicotine 21 MG/24 Hr Patch TRDERM ONE (11:51)
[2023-09-25] MEDS: Nicotine 21 MG/24 Hr Patch ONE (11:54)
== END 2023-09-25 12:00 | disposition other institution (70) ==
LOC: JP.ED 15:45
DX: F25.0 Schizoaffective disorder, bipolar type (principal); S06.9XAD Unspecified intracranial injury with loss of consciousness status unknown, subsequent encounter; Z79.899 Other long term (current) drug therapy; Z88.8 Allergy status to other drugs, medicaments and biological substances; Z88.0 Allergy status to penicillin; Z88.6 Allergy status to analgesic agent; X58.XXXD Exposure to other specified factors, subsequent encounter
CPT/HCPCS: 36415; 80053; 80305; 80307; 84443; 85025; 87635; 96372; 99285; A9270; J2060; J3420; U0002

== ENCOUNTER 2024-06-20 11:48 | Emergency (ER) | payer MEDICAID ==
[2024-06-20 12:48] VITALS: BP 188/95; PULSE 74
[2024-06-20] MEDS: Ketorolac 15 MG/ML SDV IVPUSH ONE (13:39)
== END 2024-06-20 15:28 | disposition home or self-care (01) ==
LOC: JP.ED 11:48
DX: M54.6 Pain in thoracic spine (principal); F17.210 Nicotine dependence, cigarettes, uncomplicated; Z91.048 Other nonmedicinal substance allergy status; Z88.0 Allergy status to penicillin; Z88.8 Allergy status to other drugs, medicaments and biological substances; Z79.899 Other long term (current) drug therapy
CPT/HCPCS: 71111; 96374; 96375; 99283; J1885; J3360

== ENCOUNTER 2024-12-12 12:43 | Emergency (ER) | payer MEDICAID ==
[2024-12-12 14:32] VITALS: BP 114/72; PULSE 54
== END 2024-12-12 15:29 | disposition home or self-care (01) ==
LOC: JP.ED 12:43
DX: M54.50 Low back pain, unspecified (principal); Z88.0 Allergy status to penicillin; Z88.8 Allergy status to other drugs, medicaments and biological substances; Z79.899 Other long term (current) drug therapy; Z90.49 Acquired absence of other specified parts of digestive tract
CPT/HCPCS: 99283